=== PATIENT | male | born 1940 | race Caucasian/White ===

== ENCOUNTER → 2021-03-24 | Outpatient (CLI) | payer MEDICARE, BC ==
--- NOTE | 2021-03-25 08:01 | ECHOF ---
Referral Reason:I25.10 MEASUREMENTS -------- HEIGHT: 180.3 cm WEIGHT: 115.7 kg BP: RVIDd: 3.0 cm (< 3.3) IVSd: 1.4 cm (0.6 - 1.1) LVIDd: 4.1 cm (3.9 - 5.3) LVPWd: 1.1 cm (0.6 - 1.1) IVSs: 1.7 cm LVIDs: 2.5 cm LVPWs: 2.1 cm Ao Diam: 2.9 cm (2.0 - 3.7) AV Cusp: 2.2 cm (1.5 - 2.6) LA Diam: 3.3 cm (2.7 - 3.8) MV EXCURSION: 10.065 mm (> 18.000) MV EF SLOPE: 105 mm/s (70 - 150) EPSS: 0.9 cm MV E Marcellus: 1.23 m/s MV DecT: 219 ms MV A Marcellus: 0.98 m/s MV E/A Ratio: 1.26 RAP: 5.00 mmHg RVSP: 12.73 mmHg FINDINGS -------- Sinus rhythm. This was a technically difficult study with suboptimal views. The left ventricular size is normal. There is mild concentric left ventricular hypertrophy. Overa ll left ventricular systolic function is normal with, an EF between 55 - 60 %. The right ventricle is normal in size. The left atrial size is normal. The right atrial size is normal. Lumason used The aortic valve was not well visualized. The mitral valve is normal. Mild mitral regurgitation is present. The tricuspid valve appears structurally normal. Trace tricuspid regurgitation present. Right isabel tricular systolic pressure is normal at < 35 mmHg. The pulmonic valve was not well visualized. The aortic root size is normal. Normal inferior vena cava with normal inspiratory collapse consistent with estimated right atrial pre ssure of 5 mmHg. There is no pericardial effusion. CONCLUSIONS -------- 1. This was a technically difficult study with suboptimal views. 2. There is mild concentric left ventricular hypertrophy. 3. Overall left ventricular systolic function is normal with, an EF between 55 - 60 %. 4. The left atrial size is normal. 5. The aortic valve was not well visualized. 6. Mild mitral regurgitation is present. 7. Trace tricuspid regurgitation present. 8. There is no pericardial effusion. FARM MACHINERY MECHANIC: Keyla Giraldo RDCS
== END | disposition home or self-care (01) ==
LOC: RADECHMAIN 15:35
PROVIDERS: ATTEND Internal Medicine
DX: I08.1 Rheumatic disorders of both mitral and tricuspid valves (principal)
CPT/HCPCS: C8929; Q9950; 93306

== ENCOUNTER → 2021-04-03 | Outpatient (CLI) | payer MEDICARE, BC ==
[2021-04-03 10:32] LABS: Calcium 9.3 mg/dL (8.4-10.2); Phosphorus 2.9 mg/dL (2.5-4.5); Potassium 4.4 mmol/L (3.5-5.1)
--- NOTE | 2021-04-03 10:39 | US ---
EXAMINATION TYPE: US kidneys/renal and bladder DATE OF EXAM: 04/03/2021 COMPARISON: NONE CLINICAL HISTORY: N18.30 Chronic kidney disease, stage 3 unspecified. diabetic EXAM MEASUREMENTS: Right Kidney: 8.3 x 6.5 x 4.7 cm Left Kidney: 9.9 x 5.6 x 5.8 cm Post Void Residual Volume: 36.2 mL Right Kidney: No hydronephrosis or masses seen Left Kidney: No hydronephrosis or masses seen Bilateral renal extracapsular fluid is seen as hypoechoic crescent shaped area and suggests sonograph ic "sweat sign" for renal failure. Bladder: wnl Bilateral Jets seen: yes Normal Post Void Residual: yes There is no evidence for hydronephrosis at this point in time. No nephrolithiasis is seen. No jose s are identified. The urinary bladder is not greatly distended. Bilateral ureteral jets are seen. IMPRESSION: Evidence of chronic medical renal disease. No hydronephrosis seen bilaterally.
== END | disposition home or self-care (01) ==
LOC: RADUSWWP 09:01
PROVIDERS: ATTEND Internal Medicine
DX: N28.89 Other specified disorders of kidney and ureter (principal)
CPT/HCPCS: 76770; 80048; 83970; 84100

== ENCOUNTER 2024-10-22 21:19 | Inpatient (IN) | payer BC, MEDICARE ==
[2024-10-22] MEDS: ASPIRIN 81 MG PO STA (22:05)
[2024-10-22] MEDS: NITROGLYCERIN SL TABS 0.4 MG TAB SUBLINGUAL PRN (22:06)
--- NOTE | 2024-10-22 22:11 | ED ---
General Adult HPI - General Chief complaint: Chest Pain Stated complaint: Chest Pain Time Seen by Provider: 10/22/24 21:29 Source: patient Mode of arrival: ambulatory Limitations: no limitations - History of Present Illness Initial comments: Patient is a pleasant 84-year-old on with a past medical history of hypertension, CAD presenting today for chest tightness. Patient states that he received 5 vaccines about 3 weeks ago and has not felt well since. He describes nausea and malaise. Last week he was raking leaves with his and states that after about 10 to 15 minutes he became too fatigued to continue. This is not normal for him. This morning patient woke up with chest tightness and pain in his shoulder blades bilaterally. Patient pain does not seem to radiate from the chest to the back. Endorses associated bilateral lower extremity edema. Denies cough or hemoptysis. Denies fevers or chills, nausea, vomiting, diarrhea, black or bloody stools, abdominal pain, numbness or weakness. States he has been seeing his primary care provider over the last few weeks for some of the symptoms and dizziness. His primary care provider increased the patient's hydralazine from 25 mg twice daily to 25 mg in the morning, 50 mg in the aftern oon and 50 mg in the evening. Patient denies any missed dosages of these medications. Due to patient's persistent chest tightness this evening he took his blood pressure which was 174/71. Endorses mild dyspnea but denies worsening with lying flat or activity. Chest tightness also has no exacerbating or alleviating factors. Denies recent travel, surgeries or hospitalizations,no hx CA, nonsmoker, no hx prior PE/DVT. Sees Dr. Mccord as his generation engineer however states he is due for his annual appointment and has not yet been able to get in to see him. Believes last stress test was 2 years ago. Has hx coronary angioplasty in 1993 that was performed 2/2 abnormal stress test. - Related Data Home Medications Medication Instructions Recorded Confirmed Aspirin 81 mg PO DAILY 10/23/24 10/23/24 Furosemide [Lasix] 20 mg PO DAILY 10/23/24 10/23/24 Mv-Min/Folic/K1/Lycopen/Lutein 1 tab PO DAILY 10/23/24 10/23/24 [Centrum Silver Men Tablet] Pioglitazone [Actos] 30 mg PO DAILY 10/23/24 10/23/24 amLODIPine [Norvasc] 5 mg PO HS 10/23/24 10/23/24 Previous Rx's Medication Instructions Recorded Atorvastatin [Lipitor] 40 mg PO HS #30 tab 10/25/24 Losartan [Cozaar] 50 mg PO DAILY #30 tab 10/25/24 glipiZIDE [Glucotrol] 5 mg PO AC-BRKFST #30 tab 10/25/24 hydrALAZINE HCL [Apresoline] 50 mg PO TID tab 10/25/24 Allergies Allergy/AdvReac Type Severity Reaction Status Date / Time No Known Allergies Allergy Verified 10/23/24 07:27 Review of Systems ROS Statement: Those systems with pertinent positive or pertinent negative responses have been documented in the HPI. ROS Other: All systems not noted in ROS Statement are negative. Constitutional: Denies: fever, chills Respiratory: Reports: dyspnea. Denies: cough, hemoptysis Cardiovascular: Reports: as per HPI, chest pain (tightness), edema. Denies: orthopnea Gastrointestinal: Reports: nausea (No nausea currently, though over the last 3 weeks has had intermittently ). Denies: abdominal pain, vomiting, diarrhea, melena, hematochezia Neurological: Denies: headache, numbness, vertigo Past Medical History Past Medical History: Coronary Artery Disease (CAD), Hyperlipidemia, Hypertension History of Any Multi-Drug Resistant Organisms: None Reported Additional Past Surgical History / Comment(s): angioplasty Past Psychological History: No Psychological Hx Reported Smoking Status: Former smoker Past Alcohol Use History: Rare Past Drug Use History: None Reported General Exam - General Exam Comments Initial Comments: PE: CONSTITUTIONAL: No apparent distress, well appearing SKIN: Warm, dry, no jaundice, hives or petechiae EYES: Pupils are equally round, extraocular movements intact without nystagmus, clear conjunctiva, non-icteric sclera HENT: Normocephalic, atraumatic, moist mucus membranes, oropharynx clear without exudates NECK: , Full range of motion, normal appearance PULMONARY: Decreased excursion, mild crackles in lung bases bilaterally, no accessory muscle use, no rhonchi, wheezes, rales or stridor no increased work of breathing CARDIOVASCULAR: Bradycardic rate, regular rhythm, normal S1 and S2. S3 present, distant heart sounds, No appreciated murmurs, rubs or gallops. Strong radial pulses with intact distal perfusion. 2-3+ bilateral LE pitting edema up to proximal shins GASTROINTESTINAL: Soft, active bowel sounds throughout, non-tender, non-dist ended, no palpable masses, no rebound or guarding. No hepatosplenomegaly MUSCULOSKELETAL: Extremities have no gross deformity, redness, or swelling. No calf swelling NEUROLOGIC:_a/o x 3, GCS 15, normal mentation and speech. Moves all extremities x 4 without motor or sensory deficit PSYCHIATRIC:_normal mood and affect, thought process is clear and linear Limitations: no limitations Course Vital Signs 10/22/24 10/22/24 10/22/24 21:21 22:08 23:00 Temperature 97.5 F L Pulse Rate 56 L 55 L 49 L Respiratory 18 20 18 Rate Blood Pressure 208/68 191/72 173/67 O2 Sat by Pulse 97 98 99 Oximetry 10/23/24 10/23/24 10/23/24 00:00 04:27 06:30 Temperature Pulse Rate 57 L 69 52 L Respiratory 16 16 16 Rate Blood Pressure 173/61 160/92 170/76 O2 Sat by Pulse 97 97 98 Oximetry 10/23/24 10/23/24 10/23/24 08:56 10:41 12:09 Temperature Pulse Rate 59 L 56 L 54 L Respiratory 16 16 14 Rate Blood Pressure 164/55 137/55 O2 Sat by Pulse 100 99 99 Oximetry 10/23/24 10/23/24 10/23/24 13:21 15:22 16:03 Temperature Pulse Rate 55 L 61 56 L Respiratory 14 14 14 Rate Blood Pressure 162/57 171/63 153/86 O2 Sat by Pulse 100 98 99 Oximetry 10/23/24 10/23/24 18:10 18:22 Temperature Pulse Rate 62 56 L Respiratory 14 14 Rate Blood Pressure 168/80 168/60 O2 Sat by Pulse 98 97 Oximetry EKG Findings - EKG Comments: EKG Findings:: Initial EKG done at 2145 had difficult to discern P waves but did appear to be regular rate and rhythm, rate 53 bpm, QRS duration 120 ms, QT/QTc 422/405 ms, left axis deviation, T wave inversions in leads aVR, V1 0.[address] elevation in V2 otherwise no ST elevations, no ST depressions/recipricol depressions; EKG was immediately repeated to attempt to discern P waves, hyperacute T waves V3/4. EKG done at 2148 showed sinus bradycardia with first- degree AV block, MD interval 336, rate 54 bpm, QRS duration 134 ms, QT/QTc 3 4435/422 ms, left axis deviation, 0.[address] elevation V2, otherwise no clear ST elevations or depressions/reciprocal depressions, T wave inversions V1 and aVR T waves in V3 and V4 do appear hyperacute, no STEMI or arrythmia Medical Decision Making - Medical Decision Making Was pt. sent in by a medical professional or institution (, PA, RECEPTION MANAGER, urgent care, hospital, or skilled nursing...) When possible be specific @ -No Did you speak to anyone other than the patient for history (EMS, parent, family, police, friend...)? What history was obtained from this source @ -No Did you review nursing and triage notes (agree or disagree)? Why? @ -I reviewed and agree with nursing and triage notes Were old charts reviewed (outside hosp., previous admission, EMS record, old EKG, old radiological studies, urgent care reports/EKG's, skilled nursing records)? Report findings @ -Medical records reviewed, echocardiogram done in 2020 shows EF of 55 to 60% Differential Diagnosis (chest pain, altered mental status, abdominal pain women, abdominal pain men, vaginal bleeding, weakness, fever, dyspnea, syncope, headache, dizziness, GI bleed, back pain, seizure, CVA, palpatations, mental health, musculoskeletal)? @ -Differential Chest Pain: Stable Angina, Unstable Angina, STEMI, NSTEMI Aortic Dissection, pericarditis, pleurisy, chostochondirits, Pneumothorax, Musculoskeletal, Esophageal Spasm GERD, Cholecystitis, Pancreatitis, Zoster, this is not meant to be an all- inclusive list. EKG interpreted by me (3pts min.). @ -As above X-rays interpreted by me (1pt min.). @ -Cardiomegaly , no pleural effusions or consolidations CT interpreted by me (1pt min.). @ -None done U/S interpreted by me (1pt. min.). @ -None done What testing was considered but not performed or refused? (CT, X-rays, U/S, labs)? Why? @Considered CT PE study however pt well's score <4 (3), and has signs of worsening renal disease on labs, after discussion with nephrology, , recommends against contrast CT at this time. Risk outweighs benefit What meds were considered but not given or refused? Why? @ -None Did you discuss the management of the patient with other professionals (professionals i.e. , PA, RECEPTION MANAGER, lab, RT, psych nurse, licensed master social worker, sludge control attendant, teacher, radiological defense officer, senior case manager)? Give summary @ -Case discussed with Dr. Coombs Was smoking cessation discussed for >3mins.? @ -No Was critical care preformed (if so, how long)? @Yes 35 minutes Were there social determinants of health that impacted care today? How? (Homelessness, low income, unemployed, alcoholism, drug addiction, transportation, low edu. Level, literacy, decrease access to med. care, fpc, rehab)? @ -No Was there de-escalation of care discussed even if they declined (Discuss DNR or withdrawal of care, Hospice)? @ -No What co-morbidities impacted this encounter? (DM, HTN, Smoking, COPD, CAD, Cancer, CVA, ARF, Chemo, Hep., AIDS, mental health diagnosis, sleep apnea, morbid obesity)? @HTN, CAD, HLD Was patient admitted / discharged? Hospital course, mention meds given and route, prescriptions, significant lab abnormalities, going to OR and other pertinent info. @ -Admission- Pt is a pleasant 84 show gentleman past medical history CAD, coronary angioplasty 1993 hypertension, hyperlipidemia presenting today for chest tightness x 1 day, malaise x 3 weeks and bilateral upper shoulder pain. On my assessment patient is in no acute distress, he is significantly hypertensive on arrival systolic blood pressure 208, I did recheck it at bedside with appropriately sized cuff and on repeat assessment blood pressure 192. Physical exam significant for distant heart sounds and audible S3, 2-3+ lower extremity edema, slight crackles in the bilateral lung bases with decreased excursion. Patient has no assessory muscle use and is no acute distress. Differential diagnoses above, top considerations include ACS, hypertensive emergency, hypertensive urgency, CHF secondary to longstanding hypertension. I did review patient's EKG, does show what appear to be hyperacute T waves V3 V4 though no clear ST elevations or depressions, chest tightness is currently mild. Will obtain cardiac workup including D-dimer. Due to patient's significant hypertension, crackles in lung bases and lower extremity edema we will begin with sublingual nitroglycerin x3 and 324mg ASA. If BP remains persistently elevated will consider hydralazine as well as patient takes this as home. Additionally, bedside cardiac ultrasound did no show pericardial effusion or dilated RV however EF does appear somewhat reduced. Pt agreeable with above POC. Reviewed patient's labs, significant for hyponatremia sodium 124, K 5.2, BNP 1130, trop wnl, BUN/CR 33/1.51, GFR 41, previously 31. BNP minimally elevated for patient's age, 1113. No acute changes on CXR. Discussed case with Dr. Arita, we discussed patient's findings thus far in ED, discussed risks and benefits of V/Q scan vs CT PE study, ultimately Dr. Arita requests CT PE study, ordered. Additionally requests cardiology and nephrology consults, ordered. Will discuss with Dr. Coombs this evening for further direction on normal saline administration in setting of CHF and hyponatremia. Urine sodium, urine osmolality and serum osmolality ordered. Case discussed with Dr. Coombs, recommends against CT PE study given pt's hx CKD and current Cr, and rec's V/Q scan. CT PE study cancelled. Additionally, recommends lasix challenge, 40 mg, IV. Lasix ordered. Updated to findings and plan of care. Pt agreeable with plan. Pt admitted in stable condition to Dr. Arita. Undiagnosed new problem with uncertain prognosis? @ -No Drug Therapy requiring intensive monitoring for toxicity (Heparin, Nitro, Insulin, Cardizem)? @ -No Were any procedures done? @ -No Diagnosis/symptom? @ Hypertensive urgency, hyponatremia Acute, or Chronic, or Acute on Chronic? @ acute Uncomplicated (without systemic symptoms) or Complicated (systemic symptoms)? complicated Side effects of treatment? @ -No Exacerbation, Progression, or Severe Exacerbation? @ -No Poses a threat to life or bodily function? How? (Chest pain, [place], [place], pneumonia, PE, COPD, DKA, ARF, appy, cholecystitis, CVA, Diverticulitis, Homicidal, Suicidal, threat to staff... and all critical care pts) @ -Yes, if continues to worsen, hyponatremia could lead to seizures, coma and - Lab Data Result diagrams: 10/25/24 08:28 10/25/24 08:28 Lab Results 10/22/24 10/22/24 10/22/24 Range/Units 22:00 22:00 22:00 WBC 7.4 (3.8-10.6) k/uL RBC 3.72 L (4.30-5.90) m/uL Hgb 11.6 L (13.0-17.5) gm/dL Hct 35.0 L (39.0-53.0) % MCV 94.3 (80.0-100.0) fL MCH 31.2 (25.0-35.0) pg MCHC 33.1 (31.0-37.0) g/dL RDW 14.4 (11.5-15.5) % Plt Count 241 (150-450) k/uL MPV 7.7 Neutrophils % 70 % Lymphocytes % 18 % Monocytes % 6 % Eosinophils % 3 % Basophils % 0 % Neutrophils # 5.2 (1.3-7.7) k/uL Lymphocytes # 1.3 (1.0-4.8) k/uL Monocytes # 0.5 (0-1.0) k/uL Eosinophils # 0.2 (0-0.7) k/uL Basophils # 0.0 (0-0.2) k/uL PT 10.9 (10.0-12.5) sec INR 1.0 (<1.2) APTT 27.6 (22.0-30.0) sec D-Dimer 0.49 (<0.60) mg/L FEU Sodium 124 L (137-145) mmol/L Potassium 5.2 H (3.5-5.1) mmol/L Chloride 95 L (98-107) mmol/L Carbon Dioxide 20 L (22-30) mmol/L Anion Gap 9 mmol/L BUN 33 H (9-20) mg/dL Creatinine 1.51 H (0.66-1.25) mg/dL Est GFR (CKD-EPI)AfAm 48 (>60 ml/min/1.73 sqM) Est GFR (CKD-EPI)NonAf 41 (>60 ml/min/1.73 sqM) Glucose 149 H (74-99) mg/dL POC Glucose (mg/dL) (70-110) mg/dL POC Glu Roofer ID Estimated Ave Glu mg/dL mg/dL Hemoglobin A1c (<=6.0) % Osmolality (275-295) mOsm/kg Calcium 9.0 (8.4-10.2) mg/dL Magnesium 1.7 (1.6-2.3) mg/dL Total Bilirubin 1.1 (0.2-1.3) mg/dL AST 25 (17-59) U/L ALT 17 (4-49) U/L Alkaline Phosphatase 104 (38-126) U/L Troponin I (0.000-0.034) ng/mL NT-Pro-B Natriuret Pep 1130 pg/mL Total Protein 7.2 (6.3-8.2) g/dL Albumin 4.2 (3.5-5.0) g/dL Lipase 249 (23-300) U/L Urine Osmolality (400-1100) mOsm/kg Ur Random Sodium (40-220) mmol/L 10/22/24 10/22/24 10/23/24 Range/Units 22:00 22:00 00:43 WBC (3.8-10.6) k/uL RBC (4.30-5.90) m/uL Hgb (13.0-17.5) gm/dL Hct (39.0-53.0) % MCV (80.0-100.0) fL MCH (25.0-35.0) pg MCHC (31.0-37.0) g/dL RDW (11.5-15.5) % Plt Count (150-450) k/uL MPV Neutrophils % % Lymphocytes % % Monocytes % % Eosinophils % % Basophils % % Neutrophils # (1.3-7.7) k/uL Lymphocytes # (1.0-4.8) k/uL Monocytes # (0-1.0) k/uL Eosinophils # (0-0.7) k/uL Basophils # (0-0.2) k/uL PT (10.0-12.5) sec INR (<1.2) APTT (22.0-30.0) sec D-Dimer (<0.60) mg/L FEU Sodium (137-145) mmol/L Potassium (3.5-5.1) mmol/L Chloride (98-107) mmol/L Carbon Dioxide (22-30) mmol/L Anion Gap mmol/L BUN (9-20) mg/dL Creatinine (0.66-1.25) mg/dL Est GFR (CKD-EPI)AfAm (>60 ml/min/1.73 sqM) Est GFR (CKD-EPI)NonAf (>60 ml/min/1.73 sqM) Glucose (74-99) mg/dL POC Glucose (mg/dL) (70-110) mg/dL POC Glu Roofer ID Estimated Ave Glu mg/dL 143 mg/dL Hemoglobin A1c 6.6 H (<=6.0) % Osmolality (275-295) mOsm/kg Calcium (8.4-10.2) mg/dL Magnesium (1.6-2.3) mg/dL Total Bilirubin (0.2-1.3) mg/dL AST (17-59) U/L ALT (4-49) U/L Alkaline Phosphatase (38-126) U/L Troponin I <0.012 (0.000-0.034) ng/mL NT-Pro-B Natriuret Pep pg/mL Total Protein (6.3-8.2) g/dL Albumin (3.5-5.0) g/dL Lipase (23-300) U/L Urine Osmolality 246 L (400-1100) mOsm/kg Ur Random Sodium (40-220) mmol/L 10/23/24 10/23/24 10/23/24 Range/Units 00:43 00:43 06:24 WBC (3.8-10.6) k/uL RBC (4.30-5.90) m/uL Hgb (13.0-17.5) gm/dL Hct (39.0-53.0) % MCV (80.0-100.0) fL MCH (25.0-35.0) pg MCHC (31.0-37.0) g/dL RDW (11.5-15.5) % Plt Count (150-450) k/uL MPV Neutrophils % % Lymphocytes % % Monocytes % % Eosinophils % % Basophils % % Neutrophils # (1.3-7.7) k/uL Lymphocytes # (1.0-4.8) k/uL Monocytes # (0-1.0) k/uL Eosinophils # (0-0.7) k/uL Basophils # (0-0.2) k/uL PT (10.0-12.5) sec INR (<1.2) APTT (22.0-30.0) sec D-Dimer (<0.60) mg/L FEU Sodium 125 L (137-145) mmol/L Potassium 4.7 (3.5-5.1) mmol/L Chloride 95 L (98-107) mmol/L Carbon Dioxide 22 (22-30) mmol/L Anion Gap 8 mmol/L BUN 32 H (9-20) mg/dL Creatinine 1.62 H (0.66-1.25) mg/dL Est GFR (CKD-EPI)AfAm 44 (>60 ml/min/1.73 sqM) Est GFR (CKD-EPI)NonAf 38 (>60 ml/min/1.73 sqM) Glucose 136 H (74-99) mg/dL POC Glucose (mg/dL) (70-110) mg/dL POC Glu Roofer ID Estimated Ave Glu mg/dL mg/dL Hemoglobin A1c (<=6.0) % Osmolality 278 (275-295) mOsm/kg Calcium 9.3 (8.4-10.2) mg/dL Magnesium (1.6-2.3) mg/dL Total Bilirubin (0.2-1.3) mg/dL AST (17-59) U/L ALT (4-49) U/L Alkaline Phosphatase (38-126) U/L Troponin I (0.000-0.034) ng/mL NT-Pro-B Natriuret Pep pg/mL Total Protein (6.3-8.2) g/dL Albumin (3.5-5.0) g/dL Lipase (23-300) U/L Urine Osmolality (400-1100) mOsm/kg Ur Random Sodium 36 L (40-220) mmol/L 10/23/24 10/23/24 10/23/24 Range/Units 06:24 08:16 09:36 WBC (3.8-10.6) k/uL RBC (4.30-5.90) m/uL Hgb (13.0-17.5) gm/dL Hct (39.0-53.0) % MCV (80.0-100.0) fL MCH (25.0-35.0) pg MCHC (31.0-37.0) g/dL RDW (11.5-15.5) % Plt Count (150-450) k/uL MPV Neutrophils % % Lymphocytes % % Monocytes % % Eosinophils % % Basophils % % Neutrophils # (1.3-7.7) k/uL Lymphocytes # (1.0-4.8) k/uL Monocytes # (0-1.0) k/uL Eosinophils # (0-0.7) k/uL Basophils # (0-0.2) k/uL PT (10.0-12.5) sec INR (<1.2) APTT (22.0-30.0) sec D-Dimer (<0.60) mg/L FEU Sodium 125 L (137-145) mmol/L Potassium (3.5-5.1) mmol/L Chloride (98-107) mmol/L Carbon Dioxide (22-30) mmol/L Anion Gap mmol/L BUN (9-20) mg/dL Creatinine (0.66-1.25) mg/dL Est GFR (CKD-EPI)AfAm (>60 ml/min/1.73 sqM) Est GFR (CKD-EPI)NonAf (>60 ml/min/1.73 sqM) Glucose (74-99) mg/dL POC Glucose (mg/dL) 147 H (70-110) mg/dL POC Glu Roofer ID Renetta Clarke Estimated [address] Glu mg/dL mg/dL Hemoglobin A1c (<=6.0) % Osmolality (275-295) mOsm/kg Calcium (8.4-10.2) mg/dL Magnesium (1.6-2.3) mg/dL Total Bilirubin (0.2-1.3) mg/dL AST (17-59) U/L ALT (4-49) U/L Alkaline Phosphatase (38-126) U/L Troponin I <0.012 (0.000-0.034) ng/mL NT-Pro-B Natriuret Pep pg/mL Total Protein (6.3-8.2) g/dL Albumin (3.5-5.0) g/dL Lipase (23-300) U/L Urine Osmolality (400-1100) mOsm/kg Ur Random Sodium (40-220) mmol/L Disposition Clinical Impression: Hyponatremia Disposition: ADMITTED IP TO THIS [facility] Condition: Stable
[2024-10-22 22:18] LABS: Basophils % (A) 0 %; Eosinophils # (A) 0.2 k/uL (0-0.7); Eosinophils % (A) 3 %; HGB 11.6 gm/dL (13.0-17.5); Lymphocytes # (A) 1.3 k/uL (1.0-4.8); Lymphocytes % (A) 18 %; MCH 31.2 pg (25.0-35.0); MCHC 33.1 g/dL (31.0-37.0); MCV 94.3 fL (80.0-100.0); Mean Platelet Volume 7.7; Monocytes # (A) 0.5 k/uL (0-1.0); Monocytes % (A) 6 %; Neutrophils # (A) 5.2 k/uL (1.3-7.7); Neutrophils % (A) 70 %; Platelet Count 241 k/uL (150-450); RBC 3.72 m/uL (4.30-5.90); RDW 14.4 % (11.5-15.5); WBC 7.4 k/uL (3.8-10.6)
[2024-10-22 22:26] LABS: Partial Thromboplastin Time 27.6 sec (22.0-30.0); Prothrombin Time 10.9 sec (10.0-12.5)
[2024-10-22 22:30] LABS: ALT 17 U/L (4-49); AST 25 U/L (17-59); African American GFR (CKD) 48 (>60 ml/min/1.73 sqM); Albumin 4.2 g/dL (3.5-5.0); Alkaline Phosphatase 104 U/L (38-126); Anion Gap 9 mmol/L; Blood Urea Nitrogen 33 mg/dL (9-20); Carbon Dioxide 20 mmol/L (22-30); Chloride 95 mmol/L (98-107); Glucose 149 mg/dL (74-99); Lipase 249 U/L (23-300); Magnesium 1.7 mg/dL (1.6-2.3); Non-African American GFR(CKD) 41 (>60 ml/min/1.73 sqM); Potassium 5.2 mmol/L (3.5-5.1); Sodium 124 mmol/L (137-145); Total Bilirubin 1.1 mg/dL (0.2-1.3); Total Protein 7.2 g/dL (6.3-8.2)
--- NOTE | 2024-10-22 22:31 | XR ---
EXAMINATION TYPE: XR chest 2V DATE OF EXAM: 10/22/2024 CLINICAL HISTORY: Chest pain TECHNIQUE: Frontal and lateral views of the chest are obtained. COMPARISON: None FINDINGS: There is chronic emphysematous change without suspicious focal air space opacity, pleural effusion, or pneumothorax seen. Cardiomegaly is present. The osseous structures are intact. IMPRESSION: Chronic emphysematous change and cardiomegaly without acute pulmonary process. [facility], , 10/22/2024 10:28 PM
[2024-10-22 22:38] LABS: NT-Pro-B-Type Natriuretic Pept 1130 pg/mL
[2024-10-22] MEDS: ACETAMINOPHEN TAB 500 MG TAB PO STA (22:42)
[2024-10-22] MEDS: SODIUM CHLORIDE 0.9% 500 ML 500 ML IV ONE (23:10)
[2024-10-22] MEDS: DEXTROSE 50% SYRINGE 50 ML IVP ONE (23:17)
[2024-10-22] MEDS ORDERED: ONDANSETRON 4 MG/2 ML VIAL IVP PRN (23:17)
[2024-10-22] MEDS: INSULIN REGULAR 100 UNIT/ML VIAL (IV) IV ONE (23:17)
[2024-10-22] MEDS ORDERED: NALOXONE 0.4 MG/ML 1 ML VIAL IV PRN (23:17)
[2024-10-22] MEDS ORDERED: MAG HYDROX/AL HYDROX/SIMETH 30 ML CUP PO PRN (23:17)
[2024-10-22] MEDS: FUROSEMIDE 10 MG/ML 4 ML VIAL IV STA (23:29)
[2024-10-23] MEDS: CALCIUM GLUCONATE IN NACL 1 GM in SALINE 1 100ML.BAG IVPB ONE (00:43)
[2024-10-23 06:45] LABS: African American GFR (CKD) 44 (>60 ml/min/1.73 sqM); Anion Gap 8 mmol/L; Blood Urea Nitrogen 32 mg/dL (9-20); Calcium 9.3 mg/dL (8.4-10.2); Carbon Dioxide 22 mmol/L (22-30); Chloride 95 mmol/L (98-107); Glucose 136 mg/dL (74-99); Non-African American GFR(CKD) 38 (>60 ml/min/1.73 sqM); Potassium 4.7 mmol/L (3.5-5.1); Sodium 125 mmol/L (137-145)
[2024-10-23 08:31] LABS: Glucose,Whole Blood 147 mg/dL (70-110)
[2024-10-23] MEDS: HEPARIN SODIUM,PORCINE 5,000 UNIT/ML 1 ML VIAL SQ SCH (09:01)
[2024-10-23] MEDS: ASPIRIN 81 MG PO SCH (09:02)
[2024-10-23] MEDS: FUROSEMIDE 20 MG TAB PO SCH (09:03)
[2024-10-23] MEDS: FAMOTIDINE 20 MG TAB PO SCH (09:03)
[2024-10-23] MEDS: LOSARTAN 50 MG TAB PO SCH (09:03)
[2024-10-23] MEDS ORDERED: CAFFEINE CITRATE 60 MG/3 ML VIAL IV PRN (09:29)
[2024-10-23] MEDS ORDERED: AMINOPHYLLINE 500 MG/20 ML VIAL IV PRN (09:29)
[2024-10-23] MEDS ORDERED: REGADENOSON 0.4 MG/5 ML SYRINGE IV PRN (09:29)
[2024-10-23] MEDS ORDERED: LOSARTAN 50 MG TAB PO SCH (09:45)
[2024-10-23] MEDS ORDERED: ASPIRIN 81 MG PO SCH (09:45)
--- NOTE | 2024-10-23 10:26 | P.CRDCN ---
History of Present Illness History of present illness: HISTORY OF PRESENT ILLNESS: This is a 84-year-old male with a past medical history significant for CAD with previous stenting although details are unknown, hypertension, hyperlipidemia, d iabetes, and former nicotine dependence. Patient follows in the office with Dr. Jones. We have been asked to see the patient in consultation for congestive heart failure. Patient examined at the bedside in the emergency room. Patient initially presented to the hospital with a chief complaint of tightness in his chest and his back. Patient was found to have elevated blood pressures on admission with a reading of 208/68. He remains hypertensive this morning. He is also bradycardic with heart rate in the 50s. At the time of examination he denies chest pain or pressure. He denies shortness of breath. He reports that he received multiple vaccines a few weeks ago and has not been feeling well since then. DIAGNOSTICS: - EKG reveals sinus mechanism with first-degree AV block. Left bundle branch block.. - Chest xray chronic emphysematous change and cardiomegaly without acute pulmonary process - Laboratory data: WBC 7.4. Hemoglobin 11.6. Platelet count 241. Sodium 125. Potassium 4.7. BUN 32. Creatinine 1.62. Troponin negative x 1. proBNP 1130 - Current home cardiac medications include aspirin 81 mg daily, atenolol 25 mg daily, Lasix 20 mg daily, hydralazine 50 mg twice daily, simvastatin 40 mg every 2 days, and amlodipine 5 mg at night - Most recent echocardiogram obtained in February 2021 revealed ejection fraction 55%, mild concentric LVH, mild MR, trace TR -Patient underwent Lexiscan stress test in September 2022 revealing EF of 60% with no ischemia. REVIEW OF SYSTEMS: At the time of my exam: CONSTITUTIONAL: Denies fever or chills. HEENT: Denies blurred vision, vision changes, or eye pain. Denies hemoptysis CARDIOVASCULAR: Denies chest pain. Denies orthopnea. Denies PND. Denies palpitations RESPIRATORY: Denies shortness of breath. GASTROINTESTINAL: Denies abdominal pain. Denies nausea or vomiting. HEMATOLOGIC: Denies bleeding disorders. GENITOURINARY: Denies any blood in urine. SKIN: Denies pruitis. Denies rash. PHYSICAL EXAM: VITAL SIGNS: Reviewed. GENERAL: Well-developed in no acute distress. HEENT: Head is normocephalic. Pupils are equal, round. Sclerae anicteric. Mucous membranes of the mouth are moist. Neck supple. No JVD or thyromegaly LUNGS: Respirations even and unlabored. Lungs essentially clear to auscultation bilaterally. HEART: Regular rate and rhythm. S1 and S2 heard. ABDOMEN: Soft. Nondistended. Nontender. EXTREMITIES: Normal range of motion. No clubbing or cyanosis. Peripheral pulses intact. No lower extremity edema NEUROLOGIC: Awake and alert. Oriented x 3. ASSESSMENT: Hyponatremia Chest pain, troponin negative x 2 Asymptomatic sinus bradycardia History of CAD with previous PCI, details unknown, per cardiology office records Acute kidney injury, possible CKD Hypertension Hyperlipidemia Diabetes PLAN: Obtain 2D echo to assess cardiac structure and function Discontinue atenolol Discontinue Lasix Increase hydralazine to 3 times a day dosing for optimal blood pressure control Begin normal saline at 75 cc an hour Continue to monitor sodium levels Trend troponins N.p.o. at midnight Patient to undergo Lexiscan stress test tomorrow. Patient may receive all of his cardiac medications in the morning. Further recommendations pending patient course Nurse practitioner note has been reviewed by physician. Signing provider agrees with the documented findings, assessment, and plan of care documented by CUFF STITCHER as a scribe. Past Medical History Past Medical History: Coronary Artery Disease (CAD), Hyperlipidemia, Hypertension History of Any Multi-Drug Resistant Organisms: None Reported Additional Past Surgical History / Comment(s): angioplasty Past Psychological History: No Psychological Hx Reported Smoking Status: Former smoker Past Alcohol Use History: Rare Past Drug Use History: None Reported Medications and Allergies Home Medications Medication Instructions Recorded Confirmed Type Aspirin 81 mg PO DAILY 10/23/24 10/23/24 History Furosemide [Lasix] 20 mg PO DAILY 10/23/24 10/23/24 History Losartan Potassium [Cozaar] 100 mg PO DAILY 10/23/24 10/23/24 History Mv-Min/Folic/K1/Lycopen/Lutein 1 tab PO DAILY 10/23/24 10/23/24 History [Centrum Silver Men Tablet] Pioglitazone [Actos] 30 mg PO DAILY 10/23/24 10/23/24 History Simvastatin [Zocor] 40 mg PO Q2D@2100 10/23/24 10/23/24 History allopurinoL 200 mg PO HS 10/23/24 10/23/24 History amLODIPine [Norvasc] 5 mg PO HS 10/23/24 10/23/24 History atenoloL 25 mg PO W/LUNCH 10/23/24 10/23/24 History glipiZIDE XL [Glucotrol Xl] 5 mg PO HS 10/23/24 10/23/24 History hydrALAZINE HCL [Apresoline] 50 mg PO BID@1200,2100 10/23/24 10/23/24 History Allergies Allergy/AdvReac Type Severity Reaction Status Date / Time No Known Allergies Allergy Verified 10/23/24 07:27 Physical Exam Vitals: Vital Signs Temp Pulse Resp BP Pulse Ox 10/23/24 06:30 52 L 16 170/76 98 10/23/24 04:27 69 16 160/92 97 10/23/24 00:00 57 L 16 173/61 97 10/22/24 23:00 49 L 18 173/67 99 10/22/24 22:08 55 L 20 191/72 98 10/22/24 21:21 97.5 F L 56 L 18 208/68 97 Intake and Output 10/22/24 10/23/24 10/23/24 22:59 06:59 14:59 Output Total 1900 Balance -1900 Output: Urine 1900 Other: Weight 113.398 kg Results 10/22/24 22:00 10/23/24 06:24 Cardiac Enzymes 10/22/24 10/22/24 Range/Units 22:00 22:00 AST 25 (17-59) U/L Troponin I <0.012 (0.000-0.034) ng/mL Coagulation 10/22/24 Range/Units 22:00 PT 10.9 (10.0-12.5) sec APTT 27.6 (22.0-30.0) sec CBC 10/22/24 Range/Units 22:00 WBC 7.4 (3.8-10.6) k/uL RBC 3.72 L (4.30-5.90) m/uL Hgb 11.6 L (13.0-17.5) gm/dL Hct 35.0 L (39.0-53.0) % Plt Count 241 (150-450) k/uL Comprehensive Metabolic Panel 10/22/24 10/23/24 Range/Units 22:00 06:24 Sodium 124 L 125 L (137-145) mmol/L Potassium 5.2 H 4.7 (3.5-5.1) mmol/L Chloride 95 L 95 L (98-107) mmol/L Carbon Dioxide 20 L 22 (22-30) mmol/L BUN 33 H 32 H (9-20) mg/dL Creatinine 1.51 H 1.62 H (0.66-1.25) mg/dL Glucose 149 H 136 H (74-99) mg/dL Calcium 9.0 9.3 (8.4-10.2) mg/dL AST 25 (17-59) U/L ALT 17 (4-49) U/L Alkaline Phosphatase 104 (38-126) U/L Total Protein 7.2 (6.3-8.2) g/dL Albumin 4.2 (3.5-5.0) g/dL Current Medications Generic Name Dose Route Start Last Admin Trade Name Freq PRN Reason Stop Dose Admin Acetaminophen 650 mg 10/22/24 23:17 Acetaminophen Tab 325 Mg Tab PO Q6HR PRN Mild Pain or Fever > 100.5 Al Hydroxide/Mg Hydroxide 15 ml 10/22/24 23:17 Mag Hydrox/Al Hydrox/Simeth 30 Ml Cup PO Q6HR PRN Indigestion Allopurinol 50 mg 10/23/24 21:00 Allopurinol 100 Mg Tab PO HS [facility] Aspirin 81 mg 10/23/24 09:00 Aspirin 81 Mg PO DAILY [facility] Atenolol 25 mg 10/23/24 12:00 Atenolol 25 Mg Tab PO DAILY [facility] Calcium Carbonate/Glycine 1,000 mg 10/22/24 23:17 Calcium Carbonate 500 Mg Chewable PO Q4HR PRN Dyspepsia Famotidine 20 mg 10/23/24 09:00 Famotidine 20 Mg Tab PO DAILY [facility] Furosemide 20 mg 10/23/24 09:00 Furosemide 20 Mg Tab PO DAILY [facility] Heparin Sodium (Porcine) 5,000 unit 10/23/24 09:00 Heparin Sodium,Porcine 5,000 Unit/Ml 1 Ml Vial SQ Q12HR [facility] Hydralazine HCl 25 mg 10/23/24 12:00 Hydralazine Hcl 25 Mg Tab PO BID@1200,2100 [facility] Losartan Potassium 100 mg 10/23/24 09:00 Losartan 50 Mg Tab PO DAILY [facility] Naloxone HCl 0.2 mg 10/22/24 23:17 Naloxone 0.4 Mg/Ml 1 Ml Vial IV Q2M PRN Opioid Reversal Ondansetron HCl 4 mg 10/22/24 23:17 Ondansetron 4 Mg/2 Ml Vial IVP Q8HR PRN Nausea And Vomiting Intake and Output 10/22/24 10/23/24 10/23/24 22:59 06:59 14:59 Output Total 1900 Balance -1900 Output: Urine 1900 Other: Weight 113.398 kg 10/22/24 22:00 10/23/24 06:24
[2024-10-23] MEDS: SODIUM CHLORIDE 0.9% 1,000 ML IV SCH (10:31)
[2024-10-23] MEDS: MULTIVITAMINS, THERA 1 EACH TAB PO SCH (10:31)
[2024-10-23] MEDS: ACETAMINOPHEN TAB 325 MG TAB PO PRN (10:40)
[2024-10-23] MEDS ORDERED: hydrALAZINE HCL 50 MG TAB PO SCH ×2 (12:00)
--- NOTE | 2024-10-23 12:03 | P.CONS ---
History of Present Illness - Reason for Consult Consult date: 10/23/24 hyponatremia - History of Present Illness This is a 84-year-old male with a history of hypertension, CAD s/p angioplasty, type 2 diabetes, CKD stage IIIb and hyperlipidemia came in the hospital with complaint of chest tightness. Nephrology has been consulted for hyponatremia BMP on admission shows sodium of 124 mmol/L and potassium 5.2 mmol/L. eGFR 38. Patient received normal saline bolus and dose of Lasix in ER and repeat sodium is 125 mmol/L and potassium is improved to 4.7 mmol/L Creatinine level on admission 1.51 mg/dL. Repeat creatinine level increased to 1.62 mg/dL. Patient endorses swelling in both legs. Patient reports good urine output and has been maintained on 40 mg of Lasix at home. Patient denies any history of hyponatremia, cancers, renal stones. Patient denies shortness of breath, chest pain, abdominal pain, dysuria, acute vision changes, weakness and numbness of lower extremities. Patient received multiple vaccinations past few weeks and has not been feeling well since then. Past Medical History Past Medical History: Coronary Artery Disease (CAD), Hyperlipidemia, Hypertension History of Any Multi-Drug Resistant Organisms: None Reported Additional Past Surgical History / Comment(s): angioplasty Past Psychological History: No Psychological Hx Reported Smoking Status: Former smoker Past Alcohol Use History: Rare Past Drug Use History: None Reported Medications and Allergies Home Medications Medication Instructions Recorded Confirmed Type Aspirin 81 mg PO DAILY 10/23/24 10/23/24 History Furosemide [Lasix] 20 mg PO DAILY 10/23/24 10/23/24 History Mv-Min/Folic/K1/Lycopen/Lutein 1 tab PO DAILY 10/23/24 10/23/24 History [Centrum Silver Men Tablet] Pioglitazone [Actos] 30 mg PO DAILY 10/23/24 10/23/24 History amLODIPine [Norvasc] 5 mg PO HS 10/23/24 10/23/24 History Atorvastatin [Lipitor] 40 mg PO HS #30 tab 10/25/24 Rx Losartan [Cozaar] 50 mg PO DAILY #30 tab 10/25/24 Rx glipiZIDE [Glucotrol] 5 mg PO AC-BRKFST #30 tab 10/25/24 Rx hydrALAZINE HCL [Apresoline] 50 mg PO TID tab 10/25/24 Rx Allergies Allergy/AdvReac Type Severity Reaction Status Date / Time No Known Allergies Allergy Verified 10/23/24 07:27 Physical Exam Vitals: Vital Signs Temp Pulse Resp BP Pulse Ox 10/23/24 10:41 56 L 16 99 10/23/24 08:56 59 L 16 164/55 100 10/23/24 06:30 52 L 16 170/76 98 10/23/24 04:27 69 16 160/92 97 10/23/24 00:00 57 L 16 173/61 97 10/22/24 23:00 49 L 18 173/67 99 10/22/24 22:08 55 L 20 191/72 98 10/22/24 21:21 97.5 F L 56 L 18 208/68 97 Intake and Output 10/22/24 10/23/24 10/23/24 22:59 06:59 14:59 Output Total 1900 Balance -1900 Output: Urine 1900 Other: Weight 113.398 kg Gen: In NAD, non-toxic, obese HEENT: N/C and A/T, PERRLA, EOMI, hearing acuity is intant, mucous membranes moist CVS: perfusing all extremities well, 2+ bilateral lower extremity pitting edema Respiratory: CTAB, symmetric chest expansion, no accessory muscle use, no wheezing or rales GI: soft, NTTP, ND, BS+ : no suprapubic tenderness, no CVA tenderness MSK/Derm: no rashes, cyanosis Neuro: CN II-XII intact, no motor weakness, Psych: cooperative, euthymic mood, judgment and insight is intact Results CBC & Chem 7: 10/25/24 08:28 10/25/24 08:28 Labs: Abnormal Lab Results - Last 24 Hours (Table) 10/22/24 10/22/24 10/23/24 Range/Units 22:00 22:00 00:43 RBC 3.72 L (4.30-5.90) m/uL Hgb 11.6 L (13.0-17.5) gm/dL Hct 35.0 L (39.0-53.0) % Sodium 124 L (137-145) mmol/L Potassium 5.2 H (3.5-5.1) mmol/L Chloride 95 L (98-107) mmol/L Carbon Dioxide 20 L (22-30) mmol/L BUN 33 H (9-20) mg/dL Creatinine 1.51 H (0.66-1.25) mg/dL Glucose 149 H (74-99) mg/dL POC Glucose (mg/dL) (70-110) mg/dL Ur Random Sodium 36 L (40-220) mmol/L 10/23/24 10/23/24 Range/Units 06:24 08:16 RBC (4.30-5.90) m/uL Hgb (13.0-17.5) gm/dL Hct (39.0-53.0) % Sodium 125 L (137-145) mmol/L Potassium (3.5-5.1) mmol/L Chloride 95 L (98-107) mmol/L Carbon Dioxide (22-30) mmol/L BUN 32 H (9-20) mg/dL Creatinine 1.62 H (0.66-1.25) mg/dL Glucose 136 H (74-99) mg/dL POC Glucose (mg/dL) 147 H (70-110) mg/dL Ur Random Sodium (40-220) mmol/L Assessment and Plan Assessment: 1. Hypervolemic hyponatremia in the setting of CHF and CAD. Serum osmolality 278 mOsm/kg and urine sodium 36 mmol/L. 2. Hyperkalemia. Potassium level on admission 5.2 mmol/L status post 500 mL of normal saline bolus and dose of Lasix in ER. Repeat potassium is improved to 4.7 mmol/L. Hypertensive on admission. 3. Nonoliguric acute kidney injury. Creatinine level on admission 1.51 mg/dL. Repeat creatinine level increased to 1.62 mg/dL. r/o urinary retention. 4. CKD stage IIIb in the setting of DM type 2, previous creatinine level in 1.9 in 2020 5. CAD status post coronary angioplasty 6. Type 2 diabetes mellitus. Maintained on glipizide 7. Hypertension maintained on losartan 100 mg daily, hydralazine 50 mg twice daily and Norvasc 5 mg daily Plan: Start patient on IV diuretic Discontinue normal saline Fluid restriction and salt restriction Goal of Na correction is 6 to 8 mmol/L within 24 hours Continue to monitor electrolytes Renal US and Bladder scan to r/o urinary retention Repeat Na this evening Repeat BMP in a.m. tomorrow Avoid nephrotoxic medications. Agree with resident's A/Plan Time with Patient: Less than 30
[2024-10-23] MEDS: FUROSEMIDE 10 MG/ML 4 ML VIAL IV SCH (12:10)
[2024-10-23] MEDS ORDERED: atenoloL 25 MG TAB PO SCH (12:30)
--- NOTE | 2024-10-23 13:19 | CA ---
Transthoracic Echo Report Name: Rick Blue Age: 84 Gender: M : 1940 Exam Date: 10/23/2024 09:57 Exam Location: [facility] Ht (in): 70 Wt (lb): 250 Ordering Physician: Mikayla Lacey Attending/Referring Phys: [id number], Abhijit Assistant Professor Of Physics Sadia Walker, ANGELA Procedure CPT: Indications: LV function, hx of CAD, low NA Cardiac Hx: Technical Quality: Technically difficult study Contrast 1: Total Dose (mL): Contrast 2: Total Dose (mL): MEASUREMENTS (Male / Female) Normal Values 2D ECHO LV Diastolic Diameter PLAX 5.5 cm 4.2 - 5.9 / 3.9 - 5.3 cm LV Systolic Diameter PLAX 3.8 cm IVS Diastolic Thickness 1.1 cm 0.6 - 1.0 / 0.6 - 0.9 cm LVPW Diastolic Thickness 1.3 cm 0.6 - 1.0 / 0.6 - 0.9 cm LV Relative Wall Thickness 0.4 RV Internal Dim ED PLAX 4.1 cm LVOT Diameter 2.3 cm LV Diastolic Volume MOD BP 76.4 cm??? 67 - 155 / 56 - 104 cm??? LV Systolic Volume MOD BP 28.6 cm??? 22 - 58 / 19 - 49 cm??? LV Ejection Fraction MOD BP 62.6 % >= 55 % LV Cardiac Index MOD BP 1111.3 cm???/min???m??? LV Diastolic Volume MOD 4C 86.2 cm??? LV Systolic Volume MOD 4C 25.7 cm??? LV Ejection Fraction MOD 4C 70.2 % LV Cardiac Index MOD 4C 1405.8 cm???/min???m??? LV Diastolic Length 4C 8.5 cm LV Systolic Length 4C 6.5 cm LV Diastolic Volume MOD 2C 68.2 cm??? LV Systolic Volume MOD 2C 30.0 cm??? LV Ejection Fraction MOD 2C 56.1 % LV Cardiac Index MOD 2C 889.5 cm???/min???m??? LV Diastolic Length 2C 8.4 cm LV Systolic Length 2C 7.3 cm LA Volume 65.4 cm??? 18 - 58 / 22 - 52 cm??? LA Volume Index 27.2 cm???/m??? 16 - 28 cm???/m??? M-MODE Aortic Root Diameter MM 3.2 cm AV Cusp Separation MM 1.8 cm DOPPLER AV Peak Velocity 209.3 cm/s AV Peak Gradient 17.5 mmHg AV Mean Velocity 133.0 cm/s AV Mean Gradient 8.9 mmHg AV Velocity Time Integral 48.9 cm LVOT Peak Velocity 129.1 cm/s LVOT Peak Gradient 6.7 mmHg LVOT Velocity Time Integral 30.5 cm LVOT Stroke Volume 130.5 cm??? LVOT Stroke Volume Index 56.9 ml/m??? LVOT Cardiac Index 3034.8 cm???/min???m??? AV Area Cont Eq vti 2.7 cm??? AV Area Cont Eq pk 2.6 cm??? MV Area PHT 2.7 cm??? Mitral E Point Velocity 82.2 cm/s Mitral A Point Velocity 94.9 cm/s Mitral E to A Ratio 0.9 MV Deceleration Time 279.5 ms TR Peak Velocity 313.4 cm/s TR Peak Gradient 39.3 mmHg Right Ventricular Systolic Press 44.3 mmHg FINDINGS Left Ventricle Left ventricular ejection fraction is estimated at 55-60 %. Normal left ventricular systolic function with no obvious regional wall motion abnormalities. Mildly increased left ventricular wall thickness. Left ventricular cavity size normal. Right Ventricle Mild to moderate right ventricular dilatation. Mild pulmonary hypertension. Right Atrium Right atrium not well visualized. Left Atrium Mildly increased left atrial volume. Mildly increased left atrial area. Mitral Valve Structurally normal mitral valve. Mild mitral regurgitation.mild mitral annular calcification. Aortic Valve Aortic valve not well visualized. Mild aortic regurgitation. Tricuspid Valve Structurally normal tricuspid valve. Mild tricuspid regurgitation. Pulmonic Valve Pulmonic valve not well visualized. Pericardium No pericardial or pleural effusion. Aorta Normal size aortic root and proximal ascending aorta. CONCLUSIONS Technically difficult study. Definity ECHO contrast used for improved visualization of the endocardial borders (inadequate visualization of two or more contiguous segments). Normal left ventricular size and systolic function Mild mitral, aortic and tricuspid regurgitation with mild pulmonary hypertension Dilated right ventricle Previewed by: Dr. Vee Garcia MD (Electronically Signed) Final Date: 23 October 2024 13:18
--- NOTE | 2024-10-23 13:56 | P.HPIM ---
History of Present Illness H&P Date: 10/23/24 Chief Complaint: Short of breath History and physical Dictation by Dr. Arita Date of service 10/23/2024. 84 years old white male admitted through the emergency room ambulatory on arrival Chief complaint shortness of breath. And swelling of his lower extremities History of present illness: 84 years old white male with the underlying history of hypertension chronic kidney disease presented to the emergency room with the chest tightness and the shortness of breath He had history of vaccination of 5 vaccine in the pharmacy at once and subsequently he developed generalized dizziness and weakness and malaise and nausea. This morning he felt that he had chest tightness pain in his shoulder blade bilaterally and edema of the lower extremities. On reviewing the laboratories and the chest x-ray new finding On admission WBC 7.4 hemoglobin 11.6 hematocrit 35. Platelet count 241 PT 10.9 INR 1 and PTT 27.6 and D-dimer was 0.49. He has sodium 124 with hyponatremia, potassium hyperkalemia 5.2, chloride 95, carbon dioxide 20. And his creatinine was 1.51 on the repeat went up to 1.62 with the GFR was 41 with a repeat 38 and blood sugar 136. Serum awesome to 78 and urine sodium random 36 with the urine osmolality 246. Magnesium 1.7 and normal liver enzyme troponin was less than 0.012 on the repeat as well. His serum lipase 249. EKG left bundle branch block with prolonged DE interval comfortable first-degree AV block with a heart rate of 53/min and elevated NT proBNP. Chest x-ray indicating chronic emphysematous changes with cardiomegaly. Central nervous system negative and no blurred vision no headache and no falling attacks no weakness normal gait Cardiovascular no palpitations or chest pain no Respiratory no cough or expectoration and wheezing comfortably no clubbing or cyanosis GI no diarrhea, constipation and no abdominal pain no nausea no vomiting vomiting no hematochezia or hematemesis or melena. Genitourinary no dysuria or hematuria Psychiatry no depression or anxiety Musculoskeletal no muscle pain no kyphosis no kyphoscoliosis ambulatory Skin no skin rash no erythema. HEENT no nasal discharge no hearing deficit, head is normocephalic atraumatic. Hematology; no bleeding tendency, no petechiae, no bruises, no coagulopathy abnormalities. Edema of the lower extremities was of concern. Endocrine diabetes mellitus and history of gout in the past and hypertension. And seasonal allergies. And he has been recently after he had these multiple vaccination shots in the pharmacy he felt dizzy. Physical exam on admission, temperature 97.5 F oral and pulse rate 56 bpm respiratory rate 18 and blood pressure 208/68 with the hypertension uncontrolled and the mean blood pressure 114 and pulse ox 97%. The head was normocephalic atraumatic pupil was equal reactive oral pharynx was negative normal hearing Neck was supple no JVD no thyromegaly no lymphadenopathy trachea midline Chest clear to auscultation and percussion with increased anteroposterior diameter and emphysematous change Heart bradycardia cardia with occasional gallop with the hypertension uncontrolled Abdomen obese positive bowel sound no tenderness no constipation or diarrhea Extremities 2+ pitting edema Neurologically stable. Assessment: Short of breath with the elevated NT proBNP and edema of the lower extremities and elevated blood pressure Underlying probability of pulmonary hypertension Mild congestive heart failure Hyponatremia etiology is unclear could be due to volume depletion with the low sodium in the urine. Diabetes mellitus type 2 uncontrolled. Hyperlipidemia History of hyperuricemia. Plan: 1. Consultation with Dr. YANET Jones who is his senior professional services consultant 2. Consultation with the nephrology for further treatment 3. Control blood sugar with insulin to scale number 4. Assessing the hyponatremia. 5. Adjusting his medication. Past Medical History Past Medical History: Coronary Artery Disease (CAD), Hyperlipidemia, Hypertension History of Any Multi-Drug Resistant Organisms: None Reported Additional Past Surgical History / Comment(s): angioplasty Past Psychological History: No Psychological Hx Reported Smoking Status: Former smoker Past Alcohol Use History: Rare Past Drug Use History: None Reported Medications and Allergies Home Medications Medication Instructions Recorded Confirmed Type Aspirin 81 mg PO DAILY 10/23/24 10/23/24 History Furosemide [Lasix] 20 mg PO DAILY 10/23/24 10/23/24 History Losartan Potassium [Cozaar] 100 mg PO DAILY 10/23/24 10/23/24 History Mv-Min/Folic/K1/Lycopen/Lutein 1 tab PO DAILY 10/23/24 10/23/24 History [Centrum Silver Men Tablet] Pioglitazone [Actos] 30 mg PO DAILY 10/23/24 10/23/24 History Simvastatin [Zocor] 40 mg PO Q2D@2100 10/23/24 10/23/24 History allopurinoL 200 mg PO HS 10/23/24 10/23/24 History amLODIPine [Norvasc] 5 mg PO HS 10/23/24 10/23/24 History atenoloL 25 mg PO W/LUNCH 10/23/24 10/23/24 History glipiZIDE XL [Glucotrol Xl] 5 mg PO HS 10/23/24 10/23/24 History hydrALAZINE HCL [Apresoline] 50 mg PO BID@1200,2100 10/23/24 10/23/24 History Allergies Allergy/AdvReac Type Severity Reaction Status Date / Time No Known Allergies Allergy Verified 10/23/24 07:27 Physical Exam Vitals: Vital Signs Temp Pulse Resp BP Pulse Ox 10/23/24 13:21 55 L 14 162/57 100 10/23/24 12:09 54 L 14 137/55 99 10/23/24 10:41 56 L 16 99 10/23/24 08:56 59 L 16 164/55 100 10/23/24 06:30 52 L 16 170/76 98 10/23/24 04:27 69 16 160/92 97 10/23/24 00:00 57 L 16 173/61 97 10/22/24 23:00 49 L 18 173/67 99 10/22/24 22:08 55 L 20 191/72 98 10/22/24 21:21 97.5 F L 56 L 18 208/68 97 Intake and Output 10/22/24 10/23/24 10/23/24 22:59 06:59 14:59 Output Total 1900 Balance -1900 Output: Urine 1900 Other: Weight 113.398 kg Results CBC & Chem 7: 10/22/24 22:00 10/23/24 06:24 Labs: Abnormal Lab Results - Last 24 Hours (Table) 10/22/24 10/22/24 10/23/24 Range/Units 22:00 22:00 00:43 RBC 3.72 L (4.30-5.90) m/uL Hgb 11.6 L (13.0-17.5) gm/dL Hct 35.0 L (39.0-53.0) % Sodium 124 L (137-145) mmol/L Potassium 5.2 H (3.5-5.1) mmol/L Chloride 95 L (98-107) mmol/L Carbon Dioxide 20 L (22-30) mmol/L BUN 33 H (9-20) mg/dL Creatinine 1.51 H (0.66-1.25) mg/dL Glucose 149 H (74-99) mg/dL POC Glucose (mg/dL) (70-110) mg/dL Urine Osmolality 246 L (400-1100) mOsm/kg Ur Random Sodium (40-220) mmol/L 10/23/24 10/23/24 10/23/24 Range/Units 00:43 06:24 06:24 RBC (4.30-5.90) m/uL Hgb (13.0-17.5) gm/dL Hct (39.0-53.0) % Sodium 125 L 125 L (137-145) mmol/L Potassium (3.5-5.1) mmol/L Chloride 95 L (98-107) mmol/L Carbon Dioxide (22-30) mmol/L BUN 32 H (9-20) mg/dL Creatinine 1.62 H (0.66-1.25) mg/dL Glucose 136 H (74-99) mg/dL POC Glucose (mg/dL) (70-110) mg/dL Urine Osmolality (400-1100) mOsm/kg Ur Random Sodium 36 L (40-220) mmol/L 10/23/24 Range/Units 08:16 RBC (4.30-5.90) m/uL Hgb (13.0-17.5) gm/dL Hct (39.0-53.0) % Sodium (137-145) mmol/L Potassium (3.5-5.1) mmol/L Chloride (98-107) mmol/L Carbon Dioxide (22-30) mmol/L BUN (9-20) mg/dL Creatinine (0.66-1.25) mg/dL Glucose (74-99) mg/dL POC Glucose (mg/dL) 147 H (70-110) mg/dL Urine Osmolality (400-1100) mOsm/kg Ur Random Sodium (40-220) mmol/L
--- NOTE | 2024-10-23 14:52 | US ---
EXAMINATION TYPE: US renals and bladder DATE OF EXAM: 10/23/2024 COMPARISON: US CLINICAL INDICATION: Male, 84 years old with history of HUNTER TECHNIQUE: Grayscale imaging of the bilateral kidneys and urinary bladder: FINDINGS: EXAM MEASUREMENTS: Right Kidney: 9.4 x 5.1 x 4.6 cm Left Kidney: 10.0 x 5.4 x 4.9 cm No evidence of hydronephrosis on either side. There is mild perinephric edema noted bilaterally. This could be due to senescent change or chronic kidney disease. Bladder: No gross abnormality. Bilateral Jets seen: Yes IMPRESSION: No hydronephrosis. [facility], , 10/23/2024 2:50 PM
[2024-10-23] MEDS: hydrALAZINE HCL 50 MG TAB PO SCH (16:06)
[2024-10-23] MEDS: INSULIN ASPART (NovoLOG) 100 UNIT/ML VIAL SQ SCH (18:31)
[2024-10-23] MEDS ORDERED: DEXTROSE 50% SYRINGE 50 ML IVP PRN ×2 (18:33)
[2024-10-23 20:10] LABS: Glucose,Whole Blood 168 mg/dL (70-110)
[2024-10-23] MEDS ORDERED: allopurinoL 100 MG TAB PO SCH (21:00)
[2024-10-23] MEDS: amLODIPine 5 MG TAB PO SCH (21:58)
[2024-10-24 06:01] LABS: Glucose,Whole Blood 134 mg/dL (70-110)
[2024-10-24 06:15] LABS: Basophils % (A) 0 %; Eosinophils # (A) 0.2 k/uL (0-0.7); Eosinophils % (A) 3 %; HCT 34.3 % (39.0-53.0); HGB 10.8 gm/dL (13.0-17.5); Lymphocytes # (A) 1.1 k/uL (1.0-4.8); Lymphocytes % (A) 16 %; MCH 30.1 pg (25.0-35.0); MCHC 31.6 g/dL (31.0-37.0); MCV 95.5 fL (80.0-100.0); Mean Platelet Volume 7.4; Monocytes # (A) 0.5 k/uL (0-1.0); Monocytes % (A) 7 %; Neutrophils # (A) 4.8 k/uL (1.3-7.7); Neutrophils % (A) 72 %; Platelet Count 215 k/uL (150-450); RDW 14.4 % (11.5-15.5); WBC 6.7 k/uL (3.8-10.6)
[2024-10-24 06:27] LABS: ALT 16 U/L (4-49); AST 20 U/L (17-59); African American GFR (CKD) 32 (>60 ml/min/1.73 sqM); Alkaline Phosphatase 100 U/L (38-126); Anion Gap 8 mmol/L; Blood Urea Nitrogen 38 mg/dL (9-20); Calcium 9.3 mg/dL (8.4-10.2); Carbon Dioxide 23 mmol/L (22-30); Chloride 95 mmol/L (98-107); Glucose 132 mg/dL (74-99); Magnesium 1.5 mg/dL (1.6-2.3); Non-African American GFR(CKD) 27 (>60 ml/min/1.73 sqM); Potassium 4.9 mmol/L (3.5-5.1); Sodium 126 mmol/L (137-145); Total Bilirubin 1.2 mg/dL (0.2-1.3); Total Protein 6.6 g/dL (6.3-8.2); Uric Acid 6.1 mg/dL (3.5-8.5)
[2024-10-24] MEDS ORDERED: REGADENOSON 0.4 MG/5 ML SYRINGE IV PRN (10:34)
[2024-10-24 11:28] LABS: Glucose,Whole Blood 171 mg/dL (70-110)
--- NOTE | 2024-10-24 11:49 | P.PN ---
Subjective HISTORY OF PRESENT ILLNESS: This is a 84-year-old male with a past medical history significant for CAD with previous stenting although details are unknown, hypertension, hyperlipidemia, diabetes, and former nicotine dependence. Patient follows in the office with Dr. Jones. We have been asked to see the patient in consultation for congestive he art failure. Patient examined at the bedside in the emergency room. Patient initially presented to the hospital with a chief complaint of tightness in his chest and his back. Patient was found to have elevated blood pressures on admission with a reading of 208/68. He remains hypertensive this morning. He is also bradycardic with heart rate in the 50s. At the time of examination he denies chest pain or pressure. He denies shortness of breath. He reports that he received multiple vaccines a few weeks ago and has not been feeling well since then. DIAGNOSTICS: - EKG reveals sinus mechanism with first-degree AV block. Left bundle branch block.. - Chest xray chronic emphysematous change and cardiomegaly without acute pulmonary process - Laboratory data: WBC 7.4. Hemoglobin 11.6. Platelet count 241. Sodium 125. Potassium 4.7. BUN 32. Creatinine 1.62. Troponin negative x 1. proBNP 1130 - Current home cardiac medications include aspirin 81 mg daily, atenolol 25 mg daily, Lasix 20 mg daily, hydralazine 50 mg twice daily, simvastatin 40 mg every 2 days, and amlodipine 5 mg at night - Most recent echocardiogram obtained in February 2021 revealed ejection fraction 55%, mild concentric LVH, mild MR, trace TR -Patient underwent Lexiscan stress test in September 2022 revealing EF of 60% with no ischemia. 10/24/2024 Patient examined this morning in the stress lab. Patient is currently undergoing Lexiscan stress test. Patient denies any further episodes of chest pain or pressure. He denies shortness of breath. Blood pressure this morning 138/70. Echocardiogram completed revealing ejection fraction 55 to 60%, mild pulmonary pretension, mild MR, mild AI, mild TR. Sodium today 126. Creatinine is worsened to 2.13. PHYSICAL EXAM: VITAL SIGNS: Reviewed. GENERAL: Well-developed in no acute distress. HEENT: Head is normocephalic. Pupils are equal, round. Sclerae anicteric. Mucous membranes of the mouth are moist. Neck supple. No JVD or thyromegaly LUNGS: Respirations even and unlabored. Lungs essentially clear to auscultation bilaterally. HEART: Regular rate and rhythm. S1 and S2 heard. ABDOMEN: Soft. Nondistended. Nontender. EXTREMITIES: Normal range of motion. No clubbing or cyanosis. Peripheral pulses intact. No lower extremity edema NEUROLOGIC: Awake and alert. Oriented x 3. ASSESSMENT: Hyponatremia Chest pain, troponin negative x 2 Asymptomatic sinus bradycardia History of CAD with previous PCI, details unknown, per cardiology office records Acute kidney injury, possible CKD Hypertension Hyperlipidemia Diabetes PLAN: Current cardiac medications Patient started on IV Lasix per nephrology. Daily weights, accurate intake and output, and monitoring of kidney function Patient currently undergoing Lexiscan stress test. Await results. Further recommendations pending patient course Nurse practitioner note has been reviewed by physician. Signing provider agrees with the documented findings, assessment, and plan of care documented by C[employer] LATHE OPERATOR as a scribe. Objective - Vital Signs Vital signs: Vital Signs Temp 97.4 F L 10/24/24 11:17 Pulse 67 10/24/24 11:17 Resp 20 10/24/24 11:17 BP 177/66 10/24/24 11:17 Pulse Ox 97 10/24/24 11:17 FiO2 Intake & Output 10/23/24 10/24/24 10/24/24 18:59 06:59 18:59 Output Total 1525 200 825 Balance -1525 -200 -825 Weight 113.398 kg 115.4 kg Output: Urine 1525 200 825 Other: Voiding Method Toilet # Voids 2 - Labs CBC & Chem 7: 10/24/24 05:55 10/24/24 05:55 Labs: Abnormal Lab Results - Last 24 Hours (Table) 10/22/24 10/23/24 10/23/24 Range/Units 22:00 06:24 20:06 RBC (4.30-5.90) m/uL Hgb (13.0-17.5) gm/dL Hct (39.0-53.0) % Sodium 125 L (137-145) mmol/L Chloride (98-107) mmol/L BUN (9-20) mg/dL Creatinine (0.66-1.25) mg/dL Glucose (74-99) mg/dL POC Glucose (mg/dL) 168 H (70-110) mg/dL Hemoglobin A1c 6.6 H (<=6.0) % Magnesium (1.6-2.3) mg/dL 10/24/24 10/24/24 10/24/24 Range/Units 05:55 05:55 05:59 RBC 3.60 L (4.30-5.90) m/uL Hgb 10.8 L (13.0-17.5) gm/dL Hct 34.3 L (39.0-53.0) % Sodium 126 L (137-145) mmol/L Chloride 95 L (98-107) mmol/L BUN 38 H (9-20) mg/dL Creatinine 2.13 H (0.66-1.25) mg/dL Glucose 132 H (74-99) mg/dL POC Glucose (mg/dL) 134 H (70-110) mg/dL Hemoglobin A1c (<=6.0) % Magnesium 1.5 L (1.6-2.3) mg/dL 10/24/24 Range/Units 11:27 RBC (4.30-5.90) m/uL Hgb (13.0-17.5) gm/dL Hct (39.0-53.0) % Sodium (137-145) mmol/L Chloride (98-107) mmol/L BUN (9-20) mg/dL Creatinine (0.66-1.25) mg/dL Glucose (74-99) mg/dL POC Glucose (mg/dL) 171 H (70-110) mg/dL Hemoglobin A1c (<=6.0) % Magnesium (1.6-2.3) mg/dL
--- NOTE | 2024-10-24 13:01 | CA ---
Lexiscan Nuclear Stress Test Report Name: Rick Blue Exam Date: 10/24/2024 10:03 Exam Location: [facility] Stress Ht (in): 70 Wt (lb): 254 BSA: 2.31 Ordering Phys: Mikayla Lacey Referring Phys: KARMA Technologist: Morris Bauer Age: 84 Gender: M : 1940 Procedure CPT: Indications: Reflex order-Stress test ICD-10 Codes: Patient History: Medications: SEE CHART Meds past 24 hrs: Pretest Chest Pain: STRESS TEST Lexiscan Protocol Exercise Duration (min:sec): 02:[address] Depressions (mm): Angina Score: [place] Score: Resting HR (bpm): 64 Peak HR (bpm): 86 Resting BP (mmHg): 160 / 63 Peak BP (mmHg): 132 / 71 MPHR: 134 Target HR: 114 % MPHR: 64 METS: Total Dose: Peak Dose: Atropine: Double Product: 38964 BP Response: Stress Termination: INFUSION COMPLETE Stress Symptoms: No chest pain or symptoms Stress Summary: ECG ANALYSIS Resting ECG: Sinus rhythm. First-degree AV block. No arrhythmias. Normal repolarization. Stress ECG: No ECG changes from baseline with Lexiscan infusion. CONCLUSIONS No ECG evidence of ischemia with Lexiscan infusion. Nuclear test results to follow. Dr. Vee Garcia MD (Electronically Signed) Final Date: 24 October 2024 13:00
--- NOTE | 2024-10-24 13:19 | NM ---
EXAMINATION TYPE: NM stress lexiscan cardiolite DATE OF EXAM: 10/24/2024 COMPARISON: NONE CLINICAL INDICATION: Male, 84 years old with history of chest pain; TECHNIQUE: After the intravenous administration of 9.68 mCi Tc 99m Sestamibi - Cardiolite resting SP ECT images acquired 60 minutes post injection. The patient received 0.4mg Lexiscan, 25.7 mCi Tc 99m Sestamibi - Stress images obtained [address] injection FINDINGS: Review of stress and rest SPECT images demonstrates decreased perfusion along the mid to apical septa l wall though more pronounced on rest. Additional fixed perfusion defect along the inferolateral wall . No discrete reversibility is seen. Gated analysis shows normal wall motion with an estimated left v entricular ejection fraction of 67 %. TID is upper limits of normal at 1.17 IMPRESSION: 1. A couple areas of fixed perfusion defect (1) mid to apical septal wall and (2) along the inferolat eral wall. Findings represent either areas of old infarct or attenuation artifact. The defect along t he septal wall is favored to represent artifact. 2. No convincing reversibility is seen. [facility], , 10/24/2024 1:17 PM
--- NOTE | 2024-10-24 14:18 | P.PN ---
Subjective Progress Note Date: 10/24/24 Principal diagnosis: Progress note Date of service 10/24/[address] Arita. Patient seen today [id number] discussed with the patient the finding and his at bedside. Patient underwent Lexiscan and the finding indicating as the impression, a couple area of fixed perfusion defect in mid to apical septal wall and along the inferolateral wall finding represent old infarction. Patient has hypertension still not controlled and blood pressure today 177/66 with a mean 103, Vital sign: Temperature 97.4 FL oral and pulse 67 and respiratory rate 20 nonlabored, pulse ox 97% on room air with the blood pressure as mentioned 177/66 with a mean 103. Patient with a history of smoking for 34 years with the 1-1 and half pack per day with the chest x-ray indicating emphysematous lung. Patient presented to the emergency room with the short of breath and chest tightness which improved today on discussion Echocardiogram was read by Dr. Garcia cardiology with the conclusion of mild mitral aortic and tricuspid regurgitation and pulmonary mild regurg with the dilated right ventricle with the underlying pulmonary hypertension. Ejection fraction 55 to 60%, mild increased left ventricular wall thickening and mild pulmonary hypertension. Laboratory: WBC 6.7, RBC 3.60, hemoglobin is 10.8, platelet count 215. Sodium 126 still hyponatremic. Potassium 4.9 and chloride 95. BUN 38, creatinine 2.13 and GFR 4 non- 27 which is stage IV Glucose 132 and a POC glucose ranging between 1 68-1 71. Magnesium 1.5 on the low side and the uric acid 6.1 and calcium is 9.3. Liver enzyme within normal limit Troponin 1 less than 0.012 x 2 Protein and albumin within normal limit. On exam: Patient is conscious alert oriented ambulatory. Head was normocephalic atraumatic pupil was equal reactive and normal hearing oropharynx is negative Neck was supple no JVD no thyromegaly no lymphadenopathy trachea midline Chest: Has history of smoking for 34 years with the emphysematous lung however normal breath sound. No wheezes no rhonchi's Heart: Regular sinus rhythm when he admitted to the hospital he had first-degree AV block with bradycardia beta-rick has been stopped Abdomen soft positive bowel sound no tenderness Extremities: Positive pulses bilateral, he had ankle edema which is improved from edema up to the 2 third of the shaft bilaterally. Neurologically stable no lateralizing sign Psychiatry stable good insight and mood and able to accept the discussion Assessment and plan and minimal improvement from 12 21-12 23 Acute kidney injury today not seen yet by nephrology for assessment and treatment. 1. Hyponatremia persistent 2. Hypertension and hypertensive heart disease 3. Coronary artery disease and atherosclerotic heart disease 4. Diabetes mellitus type 2 covered with insulin. Hemoglobin A1c in 10/22/2024 was 6.6. 5 creatinine increased to 2.13 on 10/24/2024 was yesterday 10/23/2024 1.62 Plan Waiting for the nephrology evaluation and treatment Waiting for cardiology evaluation and treatment Patient will not go home still on the monitor until we have further evaluation and clearance from consulting physician cardiology and nephrology Will repeat lab tomorrow and if magnesium continue to low we will supplement except if nephrology advised differently. Objective - Vital Signs Vital signs: Vital Signs Temp 97.4 F L 10/24/24 11:17 Pulse 67 10/24/24 11:17 Resp 20 10/24/24 11:17 BP 177/66 10/24/24 11:17 Pulse Ox 97 10/24/24 11:17 FiO2 Intake & Output 10/23/24 10/24/24 10/24/24 18:59 06:59 18:59 Output Total 1525 200 825 Balance -1525 -200 -825 Weight 113.398 kg 115.4 kg Output: Urine 1525 200 825 Other: Voiding Method Toilet # Voids 2 - Labs CBC & Chem 7: 10/24/24 05:55 10/24/24 05:55 Labs: Abnormal Lab Results - Last 24 Hours (Table) 10/22/24 10/23/24 10/24/24 Range/Units 22:00 20:06 05:55 RBC (4.30-5.90) m/uL Hgb (13.0-17.5) gm/dL Hct (39.0-53.0) % Sodium 126 L (137-145) mmol/L Chloride 95 L (98-107) mmol/L BUN 38 H (9-20) mg/dL Creatinine 2.13 H (0.66-1.25) mg/dL Glucose 132 H (74-99) mg/dL POC Glucose (mg/dL) 168 H (70-110) mg/dL Hemoglobin A1c 6.6 H (<=6.0) % Magnesium 1.5 L (1.6-2.3) mg/dL 10/24/24 10/24/24 10/24/24 Range/Units 05:55 05:59 11:27 RBC 3.60 L (4.30-5.90) m/uL Hgb 10.8 L (13.0-17.5) gm/dL Hct 34.3 L (39.0-53.0) % Sodium (137-145) mmol/L Chloride (98-107) mmol/L BUN (9-20) mg/dL Creatinine (0.66-1.25) mg/dL Glucose (74-99) mg/dL POC Glucose (mg/dL) 134 H 171 H (70-110) mg/dL Hemoglobin A1c (<=6.0) % Magnesium (1.6-2.3) mg/dL
--- NOTE | 2024-10-24 15:13 | P.PN ---
Subjective Progress Note Date: 10/24/24 Patient being followed for hyponatremia and volume overload. Patient currently undergoing cardiac stress test. Maintaining good urine output. Objective - Vital Signs Vital signs: Vital Signs Temp 98.1 F 10/24/24 08:00 Pulse 65 10/24/24 08:00 Resp 20 10/24/24 08:00 BP 138/70 10/24/24 08:00 Pulse Ox 96 10/24/24 08:00 FiO2 Intake & Output 10/23/24 10/24/24 10/24/24 18:59 06:59 18:59 Output Total 1525 200 825 Balance -1525 -200 -825 Weight 113.398 kg 115.4 kg Output: Urine 1525 200 825 Other: Voiding Method Toilet # Voids 2 - Exam Gen: In NAD, non-toxic, obese HEENT: N/C and A/T, PERRLA, EOMI, hearing acuity is intant, mucous membranes moist CVS: perfusing all extremities well, 2+ bilateral lower extremity pitting edema Respiratory: CTAB, symmetric chest expansion, no accessory muscle use, no wheezing or rales GI: soft, NTTP, ND, BS+ : no suprapubic tenderness, no CVA tenderness MSK/Derm: no rashes, cyanosis Neuro: CN II-XII intact, no motor weakness, Psych: cooperative, euthymic mood, judgment and insight is intact - Labs CBC & Chem 7: 10/25/24 08:28 10/25/24 08:28 Labs: Abnormal Lab Results - Last 24 Hours (Table) 10/22/24 10/23/24 10/23/24 Range/Units 22:00 00:43 06:24 RBC (4.30-5.90) m/uL Hgb (13.0-17.5) gm/dL Hct (39.0-53.0) % Sodium 125 L (137-145) mmol/L Chloride (98-107) mmol/L BUN (9-20) mg/dL Creatinine (0.66-1.25) mg/dL Glucose (74-99) mg/dL POC Glucose (mg/dL) (70-110) mg/dL Hemoglobin A1c 6.6 H (<=6.0) % Magnesium (1.6-2.3) mg/dL Urine Osmolality 246 L (400-1100) mOsm/kg 10/23/24 10/24/24 10/24/24 Range/Units 20:06 05:55 05:55 RBC 3.60 L (4.30-5.90) m/uL Hgb 10.8 L (13.0-17.5) gm/dL Hct 34.3 L (39.0-53.0) % Sodium 126 L (137-145) mmol/L Chloride 95 L (98-107) mmol/L BUN 38 H (9-20) mg/dL Creatinine 2.13 H (0.66-1.25) mg/dL Glucose 132 H (74-99) mg/dL POC Glucose (mg/dL) 168 H (70-110) mg/dL Hemoglobin A1c (<=6.0) % Magnesium 1.5 L (1.6-2.3) mg/dL Urine Osmolality (400-1100) mOsm/kg 10/24/24 Range/Units 05:59 RBC (4.30-5.90) m/uL Hgb (13.0-17.5) gm/dL Hct (39.0-53.0) % Sodium (137-145) mmol/L Chloride (98-107) mmol/L BUN (9-20) mg/dL Creatinine (0.66-1.25) mg/dL Glucose (74-99) mg/dL POC Glucose (mg/dL) 134 H (70-110) mg/dL Hemoglobin A1c (<=6.0) % Magnesium (1.6-2.3) mg/dL Urine Osmolality (400-1100) mOsm/kg Assessment and Plan Assessment: 1. Hypervolemic hyponatremia in the setting of CHF and CAD. Serum osmolality 278 mOsm/kg and urine sodium 36 mmol/L. Sodium level improved to 126. 2. Hyperkalemia. Potassium level on admission 5.2 mmol/L status post 500 mL of normal saline bolus and dose of Lasix in ER. Repeat potassium is improved to 4.7 mmol/L. Hypertensive on admission. 3. Nonoliguric acute kidney injury. Creatinine level on admission 1.51 mg/dL. Repeat creatinine level increased to 2.13 mg/dL. Renal and bladder ultrasound negative. Permissive HUNTER. 4. CKD stage IIIb in the setting of DM type 2, previous creatinine level of 1.9 in 2020 5. CAD status post coronary angioplasty 6. Type 2 diabetes mellitus. Maintained on glipizide 7. Hypertension maintained on losartan 100 mg daily, hydralazine 50 mg twice daily and Norvasc 5 mg daily Plan: Continue with IV diuretic Fluid restriction and salt restriction Goal of Na correction is 6 to 8 mmol/L within 24 hours Continue to monitor electrolytes Renal US and Bladder scan negative. No hydronephrosis Repeat BMP in a.m. tomorrow Avoid nephrotoxic medications Echocardiogram and stress test pending Reassess volume status tomorrow a.m. Agree with resident's findings assessment and plan.
[2024-10-24 16:37] LABS: Glucose,Whole Blood 164 mg/dL (70-110)
[2024-10-24 19:55] LABS: Glucose,Whole Blood 200 mg/dL (70-110)
[2024-10-24] MEDS: glipiZIDE 5 MG TAB PO SCH (21:59)
[2024-10-24] MEDS: ATORVASTATIN 40 MG TAB PO SCH (21:59)
[2024-10-24] MEDS: INSULIN ASPART (NovoLOG) 100 UNIT/ML VIAL SQ SCH (22:00)
[2024-10-24 22:12] LABS: Glucose,Whole Blood 160 mg/dL (70-110)
[2024-10-25 00:26] LABS: Glucose,Whole Blood 47 mg/dL (70-110)
[2024-10-25 00:45] LABS: Glucose,Whole Blood 66 mg/dL (70-110)
[2024-10-25 00:58] LABS: Glucose,Whole Blood 102 mg/dL (70-110)
[2024-10-25] MEDS: CALCIUM CARBONATE 500 MG CHEWABLE PO PRN (04:41)
[2024-10-25 05:20] LABS: Glucose,Whole Blood 209 mg/dL (70-110)
[2024-10-25 06:08] LABS: Glucose,Whole Blood 194 mg/dL (70-110)
[2024-10-25] MEDS: FUROSEMIDE 10 MG/ML 4 ML VIAL IV SCH (08:18)
[2024-10-25 09:17] VITALS: PULSE 72; TEMP 97.5
[2024-10-25 09:25] LABS: Basophils % (A) 0 %; Eosinophils # (A) 0.1 k/uL (0-0.7); Eosinophils % (A) 2 %; HCT 32.9 % (39.0-53.0); HGB 10.8 gm/dL (13.0-17.5); Lymphocytes # (A) 1.3 k/uL (1.0-4.8); Lymphocytes % (A) 21 %; MCH 30.8 pg (25.0-35.0); MCHC 32.9 g/dL (31.0-37.0); MCV 93.6 fL (80.0-100.0); Mean Platelet Volume 8.3; Monocytes # (A) 0.4 k/uL (0-1.0); Monocytes % (A) 7 %; Neutrophils # (A) 4.4 k/uL (1.3-7.7); Neutrophils % (A) 69 %; Platelet Count 216 k/uL (150-450); RBC 3.51 m/uL (4.30-5.90); RDW 14.8 % (11.5-15.5); Reticulocyte % 1.6 % (0.5-2.0); WBC 6.4 k/uL (3.8-10.6)
[2024-10-25 09:36] LABS: African American GFR (CKD) 22 (>60 ml/min/1.73 sqM); Anion Gap 7 mmol/L; Blood Urea Nitrogen 45 mg/dL (9-20); Calcium 9.1 mg/dL (8.4-10.2); Carbon Dioxide 26 mmol/L (22-30); Chloride 93 mmol/L (98-107); Glucose 131 mg/dL (74-99); Magnesium 1.5 mg/dL (1.6-2.3); Non-African American GFR(CKD) 19 (>60 ml/min/1.73 sqM); Potassium 4.5 mmol/L (3.5-5.1); Sodium 126 mmol/L (137-145)
--- NOTE | 2024-10-25 10:44 | P.PN ---
Subjective Patient being followed for hyponatremia and volume overload. no significant complaints today. Serum creatinine at 2.8 today. No complaints of shortness of breath. The swelling has improved significantly. Objective - Vital Signs Vital signs: Vital Signs Temp 97.5 F L 10/25/24 08:15 Pulse 72 10/25/24 08:15 Resp 18 10/25/24 08:15 BP 136/65 10/25/24 08:15 Pulse Ox 98 10/25/24 08:15 FiO2 Intake & Output 10/24/24 10/25/24 10/25/24 18:59 06:59 18:59 Intake Total 300 120 Output Total 825 Balance -525 120 Weight 115.6 kg Intake: Oral 300 120 Output: Urine 825 Other: Voiding Method Toilet Toilet - Exam patient is awake, comfortable, no acute distress. Examination of the heart S1 and S2 Examination of the lungs bilateral breath sounds are heard Abdomen is soft nontender Examination of lower extremity shows trace edema CATTLE TESTER exam grossly intact - Labs CBC & Chem 7: 10/25/24 08:28 10/25/24 08:28 Labs: Abnormal Lab Results - Last 24 Hours (Table) 10/24/24 10/24/24 10/24/24 Range/Units 11: 16:35 19:53 RBC (4.30-5.90) m/uL Hgb (13.0-17.5) gm/dL Hct (39.0-53.0) % Sodium (137-145) mmol/L Chloride (98-107) mmol/L BUN (9-20) mg/dL Creatinine (0.66-1.25) mg/dL Glucose (74-99) mg/dL POC Glucose (mg/dL) 171 H 164 H 200 H (70-110) mg/dL Magnesium (1.6-2.3) mg/dL 10/24/24 10/25/24 10/25/24 Range/Units 22:09 00:20 00:43 RBC (4.30-5.90) m/uL Hgb (13.0-17.5) gm/dL Hct (39.0-53.0) % Sodium (137-145) mmol/L Chloride (98-107) mmol/L BUN (9-20) mg/dL Creatinine (0.66-1.25) mg/dL Glucose (74-99) mg/dL POC Glucose (mg/dL) 160 H 47 L* 66 L (70-110) mg/dL Magnesium (1.6-2.3) mg/dL 10/25/24 10/25/24 10/25/24 Range/Units 05:17 06:06 08:28 RBC (4.30-5.90) m/uL Hgb (13.0-17.5) gm/dL Hct (39.0-53.0) % Sodium 126 L (137-145) mmol/L Chloride 93 L (98-107) mmol/L BUN 45 H (9-20) mg/dL Creatinine 2.86 H (0.66-1.25) mg/dL Glucose 131 H (74-99) mg/dL POC Glucose (mg/dL) 209 H 194 H (70-110) mg/dL Magnesium 1.5 L (1.6-2.3) mg/dL 10/25/24 Range/Units 08:28 RBC 3.51 L (4.30-5.90) m/uL Hgb 10.8 L (13.0-17.5) gm/dL Hct 32.9 L (39.0-53.0) % Sodium (137-145) mmol/L Chloride (98-107) mmol/L BUN (9-20) mg/dL Creatinine (0.66-1.25) mg/dL Glucose (74-99) mg/dL POC Glucose (mg/dL) (70-110) mg/dL Magnesium (1.6-2.3) mg/dL Assessment and Plan Assessment: 1. Hypervolemic hyponatremia in the setting of CHF and CAD. Serum osmolality 278 mOsm/kg and urine sodium 36 mmol/L. Sodium level staying at 126. 2. Hyperkalemia. Potassium level on admission 5.2 mmol/L status post 500 mL of normal saline bolus and dose of Lasix in ER. Repeat potassium is improved to 4.7 mmol/L. . 3. Nonoliguric acute kidney injury. Creatinine level on admission 1.51 mg/dL. Repeat creatinine level increased to 2.13 mg/dL. Renal and bladder ultrasound negative. Permissive HUNTER. 4. CKD stage IIIb in the setting of DM type 2, previous creatinine level of 1.9 in 2020 5. CAD status post coronary angioplasty 6. Type 2 diabetes mellitus. Maintained on glipizide 7. Hypertension maintained on losartan 100 mg daily, hydralazine 50 mg twice daily and Norvasc 5 mg daily Plan: DC IV Lasix Samsca 7.5 mg 1 Patient can be discharged from nephrology standpoint. He can resume Lasix 40 mg daily in 1-2 days post discharge Follow-up as outpatient in about 1-2 weeks [place] at decrease losartan to 50 mg daily for 1-2 days
[2024-10-25 11:31] LABS: Glucose,Whole Blood 141 mg/dL (70-110)
[2024-10-25] MEDS: TOLVAPTAN 15 MG TABLET PO ONE (12:11)
[2024-10-25 12:23] VITALS: BP 133/70; RESP 17
--- NOTE | 2024-10-25 12:47 | P.DS ---
Providers Date of admission: 10/23/24 11:59 Expected date of discharge: 10/25/24 Attending physician: Az Arita Consults: 10/22/24 22:51 Consult Physician Routine Consulting Provider: Judith Coombs Consult Reason/Comments: Hyperkalemia Do you want consulting provider notified?: Already Contacted 10/22/24 23:17 Consult Physician Routine Consulting Provider: Feliberto Jones Consult Reason/Comments: CHF Do you want consulting provider notified?: Yes, Notify in am Primary care physician: Az Arita Discharge summary Date of service 10/25/[address] Arita. Final diagnosis: Hypervolemic hyponatremia in the setting of congestive heart failure, coronary artery disease. 2. Hyperkalemia 5.2 on admission recovered 4.7 currently. 3. Nonoliguric acute kidney injury with the creatinine on admission 1.51 currently on discharge 2.13, with negative ultrasound 4. Chronic kidney disease stage IIIb in the setting of diabetes mellitus type 2 with previous level 1.9. 5. Coronary artery disease atherosclerotic heart disease with the history of coronary angioplasty 6. Diabetes mellitus type 2 with 1 episode of hypoglycemia resolved #7 shortness of breath and chest tightness has resolved 8. Anemia of chronic disease stool test has not been done 9. Electrolyte imbalance was history of hypomagnesemia. 10. Cardiomegaly ejection fraction 55% with mild concentric left ventricular hypertrophy, mitral regurg, tricuspid regurg. 11. Hypertension with hypertensive heart disease 12. Coronary artery disease atherosclerotic heart disease history of angioplasty. Consultation: Cardiology Dr. YANET Jones followed by Dr. Lowe Nephrology Dr. Coombs. ER presentation: Patient presented with tightness of the chest, shortness of breath edema of the lower extremities with the laboratory indicating hyponatremia with the history of underlying angioplasty and hypertension uncontrolled. Hospital course Patient admitted to senior laboratory technician for rule with the consultation of cardiology and nephrology Subsequently nephrology indicating Deasis hypervolemia hyponatremia and DC IV fluid which was given in the ER and subsequently started him on diuretic. Patient started on insulin with withholding his oral medication. Subsequently patient gradually improved and resolution of the edema of the lower extremities and with the resume of his medication he received glipizide and resulted in hypoglycemia and we will be adjusting his dose. Patient is ambulatory and cleared by nephrology and cardiology for discharge Patient will be followed by Dr. YANET Jones as outpatient next week as well as will see him for follow-up next week as well as seen by Dr. Coombs nephrology and she will see him next week as well and she started him on 1 tablet of Samsca 7.5 mg . Patient stable cleared from specialist vital sign 126/65 with a mean 88, pulse ox 98, temperature 97.5. Pulse 72. Head was normocephalic atraumatic pupil was equal reactive conjunctiva was pink sclera was nonicteric Normal oropharynx Eating swallowing normal Neck was supple no JVD no thyromegaly no lymphadenopathy trachea midline Chest clear to auscultation percussion with the emphysematous lung Heart regular sinus rhythm Abdomen soft obese positive bowel sound Extremities no edema and positive pulses. Neurologically stable Psychiatry stable normal Assessment and plan: Stable general condition for discharge home with the follow-up next week with Dr. Coombs nephrology, Dr. YANET Jones cardiology, and PCP Dr. Arita Diet is renal diet. And cardiac. Activity as tolerated. Patient Condition at Discharge: Good Plan - Discharge Summary Discharge Rx Participant: Yes New Discharge Prescriptions: New hydrALAZINE HCL [Apresoline] 50 mg PO TID tab glipiZIDE [Glucotrol] 5 mg PO AC-BRKFST #30 tab Losartan [Cozaar] 50 mg PO DAILY #30 tab Atorvastatin [Lipitor] 40 mg PO HS #30 tab Continue Mv-Min/Folic/K1/Lycopen/Lutein [Centrum Silver Men Tablet] 1 tab PO DAILY Aspirin 81 mg PO DAILY amLODIPine [Norvasc] 5 mg PO HS Pioglitazone [Actos] 30 mg PO DAILY Furosemide [Lasix] 20 mg PO DAILY Discontinued glipiZIDE XL [Glucotrol Xl] 5 mg PO HS allopurinoL 200 mg PO HS Simvastatin [Zocor] 40 mg PO Q2D@2100 hydrALAZINE HCL [Apresoline] 50 mg PO BID@1200,2100 Losartan Potassium [Cozaar] 100 mg PO DAILY atenoloL 25 mg PO W/LUNCH Discharge Medication List Aspirin 81 mg PO DAILY 10/23/24 [History] Furosemide [Lasix] 20 mg PO DAILY 10/23/24 [History] Mv-Min/Folic/K1/Lycopen/Lutein [Centrum Silver Men Tablet] 1 tab PO DAILY 10/23/24 [History] Pioglitazone [Actos] 30 mg PO DAILY 10/23/24 [History] amLODIPine [Norvasc] 5 mg PO HS 10/23/24 [History] Atorvastatin [Lipitor] 40 mg PO HS #30 tab 10/25/24 [Rx] Losartan [Cozaar] 50 mg PO DAILY #30 tab 10/25/24 [Rx] glipiZIDE [Glucotrol] 5 mg PO AC-BRKFST #30 tab 10/25/24 [Rx] hydrALAZINE HCL [Apresoline] 50 mg PO TID tab 10/25/24 [Rx] Follow up Appointment(s)/Referral(s): Feliberto Jones MD [STAFF PHYSICIAN] - 1 Week Az Arita MD [Primary Care Provider] - 3 Days Judith Coombs MD [STAFF PHYSICIAN] - 1 Week
--- NOTE | 2024-10-25 13:36 | P.PN ---
Subjective HISTORY OF PRESENT ILLNESS: This is a 84-year-old male with a past medical history significant for CAD with previous stenting although details are unknown, hypertension, hyperlipidemia, diabetes, and former nicotine dependence. Patient follows in the office with Dr. Jones. We have been asked to see the patient in consultation for congestive he art failure. Patient examined at the bedside in the emergency room. Patient initially presented to the hospital with a chief complaint of tightness in his chest and his back. Patient was found to have elevated blood pressures on admission with a reading of 208/68. He remains hypertensive this morning. He is also bradycardic with heart rate in the 50s. At the time of examination he denies chest pain or pressure. He denies shortness of breath. He reports that he received multiple vaccines a few weeks ago and has not been feeling well since then. DIAGNOSTICS: - EKG reveals sinus mechanism with first-degree AV block. Left bundle branch block.. - Chest xray chronic emphysematous change and cardiomegaly without acute pulmonary process - Laboratory data: WBC 7.4. Hemoglobin 11.6. Platelet count 241. Sodium 125. Potassium 4.7. BUN 32. Creatinine 1.62. Troponin negative x 1. proBNP 1130 - Current home cardiac medications include aspirin 81 mg daily, atenolol 25 mg daily, Lasix 20 mg daily, hydralazine 50 mg twice daily, simvastatin 40 mg every 2 days, and amlodipine 5 mg at night - Most recent echocardiogram obtained in February 2021 revealed ejection fraction 55%, mild concentric LVH, mild MR, trace TR -Patient underwent Lexiscan stress test in September 2022 revealing EF of 60% with no ischemia. 10/24/2024 Patient examined this morning in the stress lab. Patient is currently undergoing Lexiscan stress test. Patient denies any further episodes of chest pain or pressure. He denies shortness of breath. Blood pressure this morning 138/70. Echocardiogram completed revealing ejection fraction 55 to 60%, mild pulmonary pretension, mild MR, mild AI, mild TR. Sodium today 126. Creatinine is worsened to 2.13. 10/25/2024 Patient examined this morning the bedside. Patient currently denies chest pain or pressure. He denies shortness of breath. Echocardiogram completed revealing EF 55 to 60%. Patient underwent Lexiscan stress test yesterday revealing fixed defect mid to apical septal wall and along inferior lateral wall. No convincing reversibility seen. Sodium 126. BUN 45. Creatinine 2.86. PHYSICAL EXAM: VITAL SIGNS: Reviewed. GENERAL: Well-developed in no acute distress. HEENT: Head is normocephalic. Pupils are equal, round. Sclerae anicteric. Mucous membranes of the mouth are moist. Neck supple. No JVD or thyromegaly LUNGS: Respirations even and unlabored. Lungs essentially clear to auscultation bilaterally. HEART: Regular rate and rhythm. S1 and S2 heard. ABDOMEN: Soft. Nondistended. Nontender. EXTREMITIES: Normal range of motion. No clubbing or cyanosis. Peripheral pulses intact. No lower extremity edema NEUROLOGIC: Awake and alert. Oriented x 3. ASSESSMENT: Hyponatremia Chest pain, troponin negative x 2, status post Ina with no reversible ischemia Asymptomatic sinus bradycardia History of CAD with previous PCI, details unknown, per cardiology office records Acute kidney injury, possible CKD Hypertension Hyperlipidemia Diabetes PLAN: Current cardiac medications Patient is currently stable for discharge from a cardiac standpoint Patient to follow-up postdischarge with Dr. Jones Nurse practitioner note has been reviewed by physician. Signing provider agrees with the documented findings, assessment, and plan of care documented by AERONAUTICAL ENGINEERING OFFICER as a scribe. Objective - Vital Signs Vital signs: Vital Signs Temp 97.5 F L 10/25/24 08:15 Pulse 72 10/25/24 12:00 Resp 17 10/25/24 12:00 BP 133/70 10/25/24 12:00 Pulse Ox 99 10/25/24 12:00 FiO2 Intake & Output 10/24/24 10/25/24 10/25/24 18:59 06:59 18:59 Intake Total 300 120 Output Total 825 Balance -525 120 Weight 115.6 kg Intake: Oral 300 120 Output: Urine 825 Other: Voiding Method Toilet Toilet - Labs CBC & Chem 7: 10/25/24 08:28 10/25/24 08:28 Labs: Abnormal Lab Results - Last 24 Hours (Table) 10/24/24 10/24/24 10/24/24 Range/Units 16:35 19:53 22:09 RBC (4.30-5.90) m/uL Hgb (13.0-17.5) gm/dL Hct (39.0-53.0) % Sodium (137-145) mmol/L Chloride (98-107) mmol/L BUN (9-20) mg/dL Creatinine (0.66-1.25) mg/dL Glucose (74-99) mg/dL POC Glucose (mg/dL) 164 H 200 H 160 H (70-110) mg/dL Magnesium (1.6-2.3) mg/dL 10/25/24 10/25/24 10/25/24 Range/Units 00:20 00:43 05:17 RBC (4.30-5.90) m/uL Hgb (13.0-17.5) gm/dL Hct (39.0-53.0) % Sodium (137-145) mmol/L Chloride (98-107) mmol/L BUN (9-20) mg/dL Creatinine (0.66-1.25) mg/dL Glucose (74-99) mg/dL POC Glucose (mg/dL) 47 L* 66 L 209 H (70-110) mg/dL Magnesium (1.6-2.3) mg/dL 10/25/24 10/25/24 10/25/24 Range/Units 06:06 08:28 08:28 RBC 3.51 L (4.30-5.90) m/uL Hgb 10.8 L (13.0-17.5) gm/dL Hct 32.9 L (39.0-53.0) % Sodium 126 L (137-145) mmol/L Chloride 93 L (98-107) mmol/L BUN 45 H (9-20) mg/dL Creatinine 2.86 H (0.66-1.25) mg/dL Glucose 131 H (74-99) mg/dL POC Glucose (mg/dL) 194 H (70-110) mg/dL Magnesium 1.5 L (1.6-2.3) mg/dL 10/25/24 Range/Units 11:30 RBC (4.30-5.90) m/uL Hgb (13.0-17.5) gm/dL Hct (39.0-53.0) % Sodium (137-145) mmol/L Chloride (98-107) mmol/L BUN (9-20) mg/dL Creatinine (0.66-1.25) mg/dL Glucose (74-99) mg/dL POC Glucose (mg/dL) 141 H (70-110) mg/dL Magnesium (1.6-2.3) mg/dL
[2024-10-25 13:53] LABS: % Iron Saturation 13.18 (15.00-50.00); Iron 41 UG/DL (65-175); Total Iron Binding Capacity 311 UG/DL (228-460)
[2024-10-26] MEDS ORDERED: glipiZIDE 5 MG TAB PO SCH (07:30)
[2024-10-26] MEDS ORDERED: LOSARTAN 50 MG TAB PO SCH (09:00)
== END 2024-10-25 13:16 | disposition home or self-care (01) | DRG 309 ==
LOC: EC 21:19 → 3SCARD 23:20 → OBSVTOIN 10-23 11:59 → 3SCARD 10-23 16:21
PROVIDERS: ADMIT Internal Medicine; ATTEND Internal Medicine
PROC: 4A02XM4 Measurement of Cardiac Total Activity, External Approach (ICD-10-PCS; principal; 2024-10-24)
DX: I44.0 Atrioventricular block, first degree (principal); E87.1 Hypo-osmolality and hyponatremia; N17.9 Acute kidney failure, unspecified; I13.0 Hypertensive heart and chronic kidney disease with heart failure and stage 1 through stage 4 chronic kidney disease, or unspecified chronic kidney disease; R00.1 Bradycardia, unspecified; I27.20 Pulmonary hypertension, unspecified; I25.10 Atherosclerotic heart disease of native coronary artery without angina pectoris; I50.9 Heart failure, unspecified; N18.32 Chronic kidney disease, stage 3b; E11.65 Type 2 diabetes mellitus with hyperglycemia; E78.5 Hyperlipidemia, unspecified; E87.5 Hyperkalemia; D63.1 Anemia in chronic kidney disease; E11.22 Type 2 diabetes mellitus with diabetic chronic kidney disease; I08.3 Combined rheumatic disorders of mitral, aortic and tricuspid valves; I44.7 Left bundle-branch block, unspecified; J30.2 Other seasonal allergic rhinitis; Z79.82 Long term (current) use of aspirin; Z79.84 Long term (current) use of oral hypoglycemic drugs; Z79.899 Other long term (current) drug therapy; Z87.891 Personal history of nicotine dependence; Z95.5 Presence of coronary angioplasty implant and graft
CPT/HCPCS: 36415; 71046; 76770; 78452; 80048; 80053; 83036; 83540; 83550; 83690; 83735; 83880; 83930; 83935; 84295; 84300; 84484; 84550; 85025; 85045; 85379; 85610; 85730; 93005; 93017; 93306; 96361; 96372; 96374; 96375; 96376; 99291